=== PATIENT | female | born 1960 | race Caucasian/White ===

== ENCOUNTER 2018-03-11 17:26 | Inpatient (IN) ==
[2018-03-11] MEDS ORDERED: DEXTROSE 50% 25 GM/50 ML VIAL IV PRN (20:20)
[2018-03-11] MEDS ORDERED: GLUCAGON 1 MG VIAL IM PRN (20:20)
[2018-03-11] MEDS ORDERED: ZALEPLON 5 MG CAPSULE PO PRN (20:20)
[2018-03-11] MEDS: SODIUM CHLORIDE 0.9% 1,000 ML IV SCH (20:52)
[2018-03-11] MEDS: PIPERACILLIN/TAZOBACTAM 3,375 MG in SODIUM CHLORIDE 0.9% 100 ML IV SCH (21:07)
[2018-03-11 22:11] LABS: Calcium 8.4 MG/DL (8.5-10.1); Osmolality,Calculated 276.8 MOS/KG (273-304); Potassium 3.2 MMOL/L (3.5-5.1)
[2018-03-12] MEDS: VANCOMYCIN INJ 1,250 MG in SODIUM CHLORIDE 0.9% 250 ML IV SCH ×2 (01:14→17:46)
[2018-03-12] MEDS: INSULIN REGULAR 100 UNIT/ML SUBCUT SCH ×5 (01:20→21:08)
[2018-03-12] MEDS: POTASSIUM CHLORIDE RIDER 10 MEQ in PREMIX 1 EACH IV PRN ×3 (04:04→07:03)
[2018-03-12] MEDS: PIPERACILLIN/TAZOBACTAM 3,375 MG in SODIUM CHLORIDE 0.9% 100 ML IV SCH ×3 (05:34→21:08)
[2018-03-12 07:14] LABS: Basophils # 0.1 10*3/uL (0.0-0.2); Basophils % 0.4 % (0.0-0.8); Eosinophils # 0.1 10*3/uL (0.0-0.87); Eosinophils % 0.6 % (0.00-10.9); Hematocrit 32.5 VOL% (35.7-47.0); Hemoglobin 10.9 GM/DL (12.0-16.0); Immature Granulocytes % 1.1 %; Immature Granulocytes Absolute 0.15 #; Lymphocytes # 1.1 10*3/uL (1.4-4.0); Mean Corpuscular HGB Conc 33.5 GM/DL (32-36); Mean Corpuscular Hemoglobin 30 PG (27-34); Mean Corpuscular Volume 90.3 FL (87-102); Monocytes # 1.1 10*3/uL (0.11-0.8); Monocytes % 8.2 % (1.7-12.7); Neutrophils # 11.2 10*3/uL (1.4-7.4); Neutrophils % 81.7 % (38.7-73.9); Platelet Count 227 T/CUMM (130-400); Red Cell Distribution Width 12.7 % (9.3-17.3); White Blood Count 13.7 T/CUMM (4-12)
[2018-03-12 07:47] LABS: Calcium 8.3 MG/DL (8.5-10.1); Potassium 4.2 MMOL/L (3.5-5.1)
[2018-03-12 07:52] LABS: Anisocytosis Slight; Band Neutrophils 41 % (0-10); Eosinophils 2 % (0-10); Lymphocytes 10 % (20-55); Platelet Estimate Normal; Segmented Neutrophils 38 % (50-85); Total Cells Counted 100
[2018-03-12] MEDS: LISINOPRIL 10 MG TABLET PO SCH (10:05)
[2018-03-12] MEDS: LEVOTHYROXINE 88 MCG TABLET PO SCH (10:05)
[2018-03-12] MEDS: rOPINIRole 1 MG TABLET PO SCH (10:06)
[2018-03-12] MEDS: ESCITALOPRAM 10 MG TABLET PO SCH (10:06)
[2018-03-12] MEDS ORDERED: INSULIN GLARGINE 100 UNIT/ML SUBCUT SCH (21:00)
[2018-03-12] MEDS: PRAVASTATIN 40 MG TABLET PO SCH (21:09)
[2018-03-13] MEDS: VANCOMYCIN INJ 1,250 MG in SODIUM CHLORIDE 0.9% 250 ML IV SCH ×2 (01:56→13:39)
[2018-03-13] MEDS: PIPERACILLIN/TAZOBACTAM 3,375 MG in SODIUM CHLORIDE 0.9% 100 ML IV SCH ×3 (04:53→21:59)
[2018-03-13 07:00] LABS: Basophils # 0.1 10*3/uL (0.0-0.2); Basophils % 0.4 % (0.0-0.8); Eosinophils # 0.1 10*3/uL (0.0-0.87); Eosinophils % 0.9 % (0.00-10.9); Hematocrit 31.9 VOL% (35.7-47.0); Hemoglobin 10.8 GM/DL (12.0-16.0); Immature Granulocytes % 1.9 %; Immature Granulocytes Absolute 0.26 #; Lymphocytes # 2.1 10*3/uL (1.4-4.0); Lymphocytes % 14.9 % (21.3-54.2); Mean Corpuscular HGB Conc 33.9 GM/DL (32-36); Mean Corpuscular Hemoglobin 30 PG (27-34); Mean Corpuscular Volume 88.9 FL (87-102); Mean Platelet Volume 10.6 FL (9.6-12.0); Monocytes # 1.3 10*3/uL (0.11-0.8); Monocytes % 9.6 % (1.7-12.7); Neutrophils % 72.3 % (38.7-73.9); Platelet Count 253 T/CUMM (130-400); Red Blood Count 3.59 MC/CUMM (3.8-5.5); Red Cell Distribution Width 12.9 % (9.3-17.3); White Blood Count 13.9 T/CUMM (4-12)
[2018-03-13] MEDS: SODIUM CHLORIDE 0.9% 1,000 ML IV SCH ×2 (07:00→10:11)
[2018-03-13] MEDS: LEVOTHYROXINE 88 MCG TABLET PO SCH (07:11)
[2018-03-13 07:17] LABS: Calcium 8.5 MG/DL (8.5-10.1); Osmolality,Calculated 285.8 MOS/KG (273-304)
[2018-03-13] MEDS: INSULIN REGULAR 100 UNIT/ML SUBCUT SCH ×4 (08:28→21:53)
[2018-03-13] MEDS: ENOXAPARIN 40 MG/0.4 ML SYRINGE SUBCUT SCH (09:14)
[2018-03-13] MEDS: rOPINIRole 1 MG TABLET PO SCH (09:15)
[2018-03-13] MEDS: ESCITALOPRAM 10 MG TABLET PO SCH (09:16)
[2018-03-13] MEDS: LISINOPRIL 10 MG TABLET PO SCH (09:21)
[2018-03-13] MEDS ORDERED: SODIUM PHOSPHATE ENEMA 133 ML BOTTLE RECTAL ONE (09:34)
[2018-03-13] MEDS: MORPHINE 4 MG/1 ML VIAL IV PRN ×2 (11:36→21:52)
[2018-03-13] MEDS: INSULIN GLARGINE 100 UNIT/ML SUBCUT SCH (21:53)
[2018-03-13] MEDS: PRAVASTATIN 40 MG TABLET PO SCH (21:54)
[2018-03-14] MEDS: VANCOMYCIN INJ 1,250 MG in SODIUM CHLORIDE 0.9% 250 ML IV SCH (02:31)
[2018-03-14] MEDS: LEVOTHYROXINE 88 MCG TABLET PO SCH ×2 (06:01→07:00)
[2018-03-14] MEDS: PIPERACILLIN/TAZOBACTAM 3,375 MG in SODIUM CHLORIDE 0.9% 100 ML IV SCH ×2 (06:02→18:09)
[2018-03-14 07:13] LABS: Basophils # 0.1 10*3/uL (0.0-0.2); Basophils % 0.6 % (0.0-0.8); Eosinophils # 0.1 10*3/uL (0.0-0.87); Eosinophils % 1.1 % (0.00-10.9); Hematocrit 31.7 VOL% (35.7-47.0); Hemoglobin 10.6 GM/DL (12.0-16.0); Immature Granulocytes % 5.2 %; Immature Granulocytes Absolute 0.69 #; Lymphocytes # 1.5 10*3/uL (1.4-4.0); Lymphocytes % 11.3 % (21.3-54.2); Mean Corpuscular HGB Conc 33.4 GM/DL (32-36); Mean Corpuscular Hemoglobin 30 PG (27-34); Mean Corpuscular Volume 89.5 FL (87-102); Mean Platelet Volume 10.5 FL (9.6-12.0); Monocytes # 1.7 10*3/uL (0.11-0.8); Monocytes % 13.1 % (1.7-12.7); NRBC # 0.06 10*3/uL; Neutrophils % 68.7 % (38.7-73.9); Platelet Count 275 T/CUMM (130-400); Red Blood Count 3.54 MC/CUMM (3.8-5.5); Red Cell Distribution Width 13.1 % (9.3-17.3); White Blood Count 13.2 T/CUMM (4-12)
[2018-03-14 07:32] LABS: Band Neutrophils 2 % (0-10); Eosinophils 4 % (0-10); Hypochromasia 1+; Lymphocytes 15 % (20-55); Platelet Estimate Adequate; Segmented Neutrophils 71 % (50-85); Total Cells Counted 100
[2018-03-14 07:43] LABS: Calcium 8.4 MG/DL (8.5-10.1); Osmolality,Calculated 286.1 MOS/KG (273-304); Potassium 3.8 MMOL/L (3.5-5.1)
[2018-03-14] MEDS: ENOXAPARIN 40 MG/0.4 ML SYRINGE SUBCUT SCH (09:19)
[2018-03-14] MEDS ORDERED: LIDOCAINE 1% 20 ML VIAL ONE (10:36)
[2018-03-14] MEDS: INSULIN REGULAR 100 UNIT/ML SUBCUT SCH ×4 (12:22→21:09)
[2018-03-14] MEDS ORDERED: MIDAZOLAM 2 MG/2 ML VIAL ONE (12:23)
[2018-03-14] MEDS ORDERED: PROPOFOL 200 MG/20 ML VIAL IV ONE (12:23)
[2018-03-14] MEDS ORDERED: fentaNYL 100 MCG/2 ML VIAL ONE (12:24)
[2018-03-14] MEDS ORDERED: INSULIN REGULAR 100 UNIT/ML ONE (12:25)
[2018-03-14] MEDS ORDERED: ONDANSETRON 4 MG/2 ML VIAL ONE (12:28)
[2018-03-14] MEDS ORDERED: MEPERIDINE 25 MG/1 ML VIAL ONE (12:28)
[2018-03-14] MEDS: MEPERIDINE 25 MG/1 ML VIAL IV PRN (12:30)
[2018-03-14] MEDS ORDERED: ONDANSETRON 4 MG/2 ML VIAL IV PRN (12:30)
[2018-03-14] MEDS: INSULIN GLARGINE 100 UNIT/ML SUBCUT SCH ×2 (13:41→21:10)
[2018-03-14] MEDS: ALUMINUM/MAGNES/SIMETH MAX STR 30 ML UDCUP PO PRN (18:08)
[2018-03-14] MEDS: LISINOPRIL 10 MG TABLET PO SCH (18:46)
[2018-03-14] MEDS: rOPINIRole 1 MG TABLET PO SCH (18:46)
[2018-03-14] MEDS: ESCITALOPRAM 10 MG TABLET PO SCH (18:46)
[2018-03-14] MEDS: PRAVASTATIN 40 MG TABLET PO SCH (21:09)
[2018-03-15] MEDS: PIPERACILLIN/TAZOBACTAM 3,375 MG in SODIUM CHLORIDE 0.9% 100 ML IV SCH (01:39)
[2018-03-15] MEDS: SODIUM CHLORIDE 0.9% 1,000 ML IV SCH ×2 (01:41→01:42)
[2018-03-15] MEDS: LEVOTHYROXINE 88 MCG TABLET PO SCH (06:17)
[2018-03-15 07:01] LABS: Basophils # 0.1 10*3/uL (0.0-0.2); Basophils % 0.4 % (0.0-0.8); Eosinophils # 0.2 10*3/uL (0.0-0.87); Hematocrit 30.2 VOL% (35.7-47.0); Hemoglobin 9.7 GM/DL (12.0-16.0); Immature Granulocytes Absolute 0.91 #; Lymphocytes # 2.5 10*3/uL (1.4-4.0); Lymphocytes % 13.5 % (21.3-54.2); Mean Corpuscular HGB Conc 32.1 GM/DL (32-36); Mean Corpuscular Hemoglobin 30 PG (27-34); Mean Corpuscular Volume 92.4 FL (87-102); Mean Platelet Volume 10.2 FL (9.6-12.0); Monocytes % 11.1 % (1.7-12.7); Neutrophils # 12.7 10*3/uL (1.4-7.4); Platelet Count 302 T/CUMM (130-400); Red Blood Count 3.27 MC/CUMM (3.8-5.5); Red Cell Distribution Width 13.2 % (9.3-17.3); White Blood Count 18.4 T/CUMM (4-12)
[2018-03-15 07:18] LABS: Calcium 8.2 MG/DL (8.5-10.1); Osmolality,Calculated 278.4 MOS/KG (273-304); Potassium 3.6 MMOL/L (3.5-5.1)
[2018-03-15 07:24] LABS: Band Neutrophils 6 % (0-10); Lymphocytes 15 % (20-55); Platelet Estimate Adequate; Segmented Neutrophils 70 % (50-85); Total Cells Counted 100
[2018-03-15 07:25] LABS: Hypochromasia Slight
[2018-03-15] MEDS: INSULIN REGULAR 100 UNIT/ML SUBCUT SCH ×4 (07:30→20:18)
[2018-03-15] MEDS: INSULIN GLARGINE 100 UNIT/ML SUBCUT SCH ×2 (09:00→20:18)
[2018-03-15] MEDS ORDERED: LIDOCAINE 1% 20 ML VIAL ONE (10:36)
[2018-03-15] MEDS ORDERED: PROPOFOL 200 MG/20 ML VIAL IV ONE (12:05)
[2018-03-15] MEDS ORDERED: MIDAZOLAM 2 MG/2 ML VIAL ONE (12:06)
[2018-03-15] MEDS ORDERED: fentaNYL 100 MCG/2 ML VIAL ONE (12:06)
[2018-03-15] MEDS ORDERED: PHENYLEPHRINE 1 MG/10 ML SYRINGE IV ONE (12:06)
[2018-03-15] MEDS ORDERED: LACTATED RINGERS 1,000 ML IV ONE (12:07)
[2018-03-15] MEDS ORDERED: PIPERACILLIN/TAZOBACTAM 3,375 MG in SODIUM CHLORIDE 0.9% 100 ML IV SCH (14:00)
[2018-03-15] MEDS ORDERED: cefTRIAXone 1,000 MG in SODIUM CHLORIDE 0.9% 100 ML IV SCH (15:30)
[2018-03-15] MEDS: ONDANSETRON 4 MG/2 ML VIAL IV PRN (15:36)
[2018-03-15] MEDS: MORPHINE 4 MG/1 ML VIAL IV PRN ×2 (15:37→20:16)
[2018-03-15] MEDS ORDERED: cefTRIAXone 1,000 MG VIAL IM SCH (16:00)
[2018-03-15] MEDS: ESCITALOPRAM 10 MG TABLET PO SCH (17:13)
[2018-03-15] MEDS: ENOXAPARIN 40 MG/0.4 ML SYRINGE SUBCUT SCH (17:14)
[2018-03-15] MEDS ORDERED: cefTRIAXone 1,000 MG in SYRINGE 1 EACH IV SCH (17:30)
[2018-03-15] MEDS: rOPINIRole 1 MG TABLET PO SCH (20:17)
[2018-03-15] MEDS: PRAVASTATIN 40 MG TABLET PO SCH (20:18)
[2018-03-15] MEDS ORDERED: PIPERACILLIN/TAZOBACTAM 2,250 MG in SODIUM CHLORIDE 0.9% 100 ML IV SCH (21:00)
[2018-03-16] MEDS: SODIUM CHLORIDE 0.9% 1,000 ML IV SCH ×2 (02:39→08:55)
[2018-03-16] MEDS: LEVOTHYROXINE 88 MCG TABLET PO SCH (06:20)
[2018-03-16 08:40] LABS: Osmolality,Calculated 275.7 MOS/KG (273-304)
[2018-03-16] MEDS ORDERED: FUROSEMIDE 40 MG/4 ML VIAL IV ONE (08:54)
[2018-03-16 09:00] LABS: % Iron Saturation 8.8 % (18-50)
[2018-03-16] MEDS: INSULIN GLARGINE 100 UNIT/ML SUBCUT SCH ×2 (09:02→20:46)
[2018-03-16] MEDS: INSULIN REGULAR 100 UNIT/ML SUBCUT SCH ×4 (09:03→20:47)
[2018-03-16 09:06] LABS: Basophils # 0.1 10*3/uL (0.0-0.2); Basophils % 0.4 % (0.0-0.8); Eosinophils # 0.2 10*3/uL (0.0-0.87); Eosinophils % 0.9 % (0.00-10.9); Hematocrit 29.6 VOL% (35.7-47.0); Hemoglobin 9.6 GM/DL (12.0-16.0); Immature Granulocytes % 5.9 %; Immature Granulocytes Absolute 1.24 #; Lymphocytes # 1.9 10*3/uL (1.4-4.0); Lymphocytes % 9.2 % (21.3-54.2); Mean Corpuscular HGB Conc 32.4 GM/DL (32-36); Mean Corpuscular Hemoglobin 30 PG (27-34); Mean Corpuscular Volume 92.5 FL (87-102); Mean Platelet Volume 9.7 FL (9.6-12.0); Monocytes # 1.7 10*3/uL (0.11-0.8); Monocytes % 8.2 % (1.7-12.7); NRBC # 0.03 10*3/uL; Neutrophils # 15.9 10*3/uL (1.4-7.4); Neutrophils % 75.4 % (38.7-73.9); Platelet Count 321 T/CUMM (130-400); Red Cell Distribution Width 13.2 % (9.3-17.3); White Blood Count 21.1 T/CUMM (4-12)
[2018-03-16 09:27] LABS: Band Neutrophils 2 % (0-10); Lymphocytes 9 % (20-55); Microcytosis 1+; Platelet Estimate Normal; Segmented Neutrophils 79 % (50-85); Total Cells Counted 100
[2018-03-16 09:47] LABS: Amorphous Crystals,Urine Occasional /HPF (Few); Apearance,Urine Slightly Hazy (Clear); Bacteria,Urine Occasional /HPF (Few); Bilirubin,Urine Negative (Negative); Blood, Urine Small mg/dL (Negative); Glucose,Urine (UA) 50 mg/dL (Negative); Ketones,Urine Negative (Negative); Nitrite,Urine Negative (Negative); Protein,Urine Negative; RBC,Urine <1 /HPF (0-4); Squamous Epithelial Cell,Urine Occasional /HPF (0-10); Urine Color Straw (Yellow); Urine Specific Gravity 1.003 (1.001-1.035); Urine Urobilinogen < 2.0 EU/DL (0.2-1.0); WBC,Urine 1 /HPF (0-6)
[2018-03-16 10:05] LABS: Creatinine,Urine Random 26 MG/DL; Total Protein,Urine Random 31 MG/DL; Urea Nitrogen, Urine Random 88 MG/DL
[2018-03-16] MEDS ORDERED: PIPERACILLIN/TAZOBACTAM 2,250 MG in SODIUM CHLORIDE 0.9% 100 ML IV SCH (10:30)
[2018-03-16] MEDS ORDERED: SEVOFLURANE 1 UNIT/15 MINUTE INH ONE (11:25)
[2018-03-16] MEDS ORDERED: PROPOFOL 200 MG/20 ML VIAL IV ONE (11:25)
[2018-03-16] MEDS ORDERED: ONDANSETRON 4 MG/2 ML VIAL ONE (11:26)
[2018-03-16] MEDS ORDERED: fentaNYL 100 MCG/2 ML VIAL ONE (11:26)
[2018-03-16] MEDS ORDERED: ACETAMINOPHEN 1,000 MG/100 ML VIAL IV ONE (11:26)
[2018-03-16] MEDS ORDERED: MIDAZOLAM 2 MG/2 ML VIAL ONE (11:26)
[2018-03-16] MEDS ORDERED: KETOROLAC 30 MG/1 ML VIAL ONE (11:26)
[2018-03-16] MEDS: SODIUM BICARB INJ 100 MEQ in DEXTROSE 5% 1,000 ML IV SCH (12:05)
[2018-03-16] MEDS: PIPERACILLIN/TAZOBACTAM 3,375 MG in SODIUM CHLORIDE 0.9% 100 ML IV SCH ×2 (12:26→23:00)
[2018-03-16] MEDS: amLODIPine 5 MG TABLET PO SCH (13:00)
[2018-03-16] MEDS: ENOXAPARIN 30 MG/0.3 ML SYRINGE SUBCUT SCH (13:01)
[2018-03-16] MEDS: ESCITALOPRAM 10 MG TABLET PO SCH (13:01)
[2018-03-16 15:07] LABS: Lactic Acid 1.2 MMOL/L (0.4-2.0)
[2018-03-16 15:10] LABS: Alanine Aminotransferase 13 U/L (13-56); Albumin 1.5 G/DL (3.4-5.0); Alkaline Phosphatase 129 U/L (45-117); Aspartate Amino Transferase 12 U/L (0-37); Bilirubin,Indirect 0.3 MG/DL (0.0-1.0); Bilirubin,Total < 0.39 MG/DL (0.2-1.0); Total Protein 6.3 G/DL (6.4-8.3)
[2018-03-16] MEDS: MEPERIDINE 25 MG/1 ML VIAL IV PRN (15:33)
[2018-03-16] MEDS: ONDANSETRON 4 MG/2 ML VIAL IV PRN (20:45)
[2018-03-16] MEDS: rOPINIRole 1 MG TABLET PO SCH (20:46)
[2018-03-17] MEDS: ALUMINUM/MAGNES/SIMETH MAX STR 30 ML UDCUP PO PRN ×3 (00:03→21:52)
[2018-03-17] MEDS: ONDANSETRON 4 MG/2 ML VIAL IV PRN ×3 (01:08→12:15)
[2018-03-17] MEDS: LEVOTHYROXINE 88 MCG TABLET PO SCH (06:12)
[2018-03-17 07:14] LABS: Basophils # 0.1 10*3/uL (0.0-0.2); Basophils % 0.3 % (0.0-0.8); Eosinophils # 0.1 10*3/uL (0.0-0.87); Eosinophils % 0.8 % (0.00-10.9); Hematocrit 29.8 VOL% (35.7-47.0); Hemoglobin 9.9 GM/DL (12.0-16.0); Immature Granulocytes % 4.5 %; Immature Granulocytes Absolute 0.83 #; Lymphocytes # 1.4 10*3/uL (1.4-4.0); Lymphocytes % 7.5 % (21.3-54.2); Mean Corpuscular HGB Conc 33.2 GM/DL (32-36); Mean Corpuscular Hemoglobin 30 PG (27-34); Mean Corpuscular Volume 89.2 FL (87-102); Mean Platelet Volume 9.8 FL (9.6-12.0); Monocytes # 1.2 10*3/uL (0.11-0.8); Monocytes % 6.2 % (1.7-12.7); NRBC # 0.02 10*3/uL; Neutrophils % 80.7 % (38.7-73.9); Platelet Count 341 T/CUMM (130-400); Red Blood Count 3.34 MC/CUMM (3.8-5.5); Red Cell Distribution Width 13.2 % (9.3-17.3); White Blood Count 18.5 T/CUMM (4-12)
[2018-03-17 07:33] LABS: Albumin 1.4 G/DL (3.4-5.0); Calcium 7.7 MG/DL (8.5-10.1); Osmolality,Calculated 284.1 MOS/KG (273-304)
[2018-03-17 07:51] LABS: Band Neutrophils 36 % (0-10); Lymphocytes 6 % (20-55); Nucleated Red Blood Cells 1 (0-5); Platelet Estimate Normal; Segmented Neutrophils 53 % (50-85); Total Cells Counted 100
[2018-03-17 07:52] LABS: Anisocytosis Slight
[2018-03-17] MEDS: SODIUM BICARB INJ 100 MEQ in DEXTROSE 5% 1,000 ML IV SCH (09:37)
[2018-03-17] MEDS: ESCITALOPRAM 10 MG TABLET PO SCH (09:37)
[2018-03-17] MEDS: ENOXAPARIN 30 MG/0.3 ML SYRINGE SUBCUT SCH (09:37)
[2018-03-17] MEDS: INSULIN REGULAR 100 UNIT/ML SUBCUT SCH ×4 (09:37→21:46)
[2018-03-17] MEDS: amLODIPine 5 MG TABLET PO SCH (09:37)
[2018-03-17] MEDS: INSULIN GLARGINE 100 UNIT/ML SUBCUT SCH ×2 (09:38→21:45)
[2018-03-17] MEDS: methylPREDNISolone SOD SUC 125 MG/2 ML VIAL IV SCH ×2 (10:38→21:45)
[2018-03-17] MEDS: ALBUMIN 25% 25 GM in PREMIX 1 EACH IV SCH ×2 (10:38→17:10)
[2018-03-17 11:34] LABS: Hepatitis A Ab IgM Quant 0.26 Index; Hepatitis A Ab IgM Result Negative (Negative); Hepatitis B Core IgM Quant < 0.05 Index; Hepatitis B Core IgM Result Negative (Negative); Hepatitis B Surface Ag Quant < 0.10 Index; Hepatitis B Surface Ag Result Negative (Negative); Hepatitis C Virus Ab Quant 0.16 Index; Hepatitis C Virus Ab Result Negative (Negative)
[2018-03-17] MEDS: miSOPROStol 200 MCG TABLET PO SCH ×3 (12:10→21:44)
[2018-03-17] MEDS: PIPERACILLIN/TAZOBACTAM 3,375 MG in SODIUM CHLORIDE 0.9% 100 ML IV SCH (12:10)
[2018-03-17] MEDS: AMPICILLIN/SULBACTAM 3,000 MG in SODIUM CHLORIDE 0.9% 100 ML IV SCH (18:47)
[2018-03-17] MEDS: rOPINIRole 1 MG TABLET PO SCH (21:45)
[2018-03-18] MEDS: ALBUMIN 25% 25 GM in PREMIX 1 EACH IV SCH ×3 (01:34→23:38)
[2018-03-18] MEDS: ONDANSETRON 4 MG/2 ML VIAL IV PRN ×2 (02:07→21:29)
[2018-03-18] MEDS: MORPHINE 4 MG/1 ML VIAL IV PRN (02:07)
[2018-03-18] MEDS ORDERED: DIAZEPAM 5 MG TABLET PO ONE (05:00)
[2018-03-18] MEDS ORDERED: FAMOTIDINE 20 MG TABLET PO ONE (05:00)
[2018-03-18] MEDS: LEVOTHYROXINE 88 MCG TABLET PO SCH (07:01)
[2018-03-18] MEDS: SODIUM BICARB INJ 100 MEQ in DEXTROSE 5% 1,000 ML IV SCH ×2 (07:01→18:13)
[2018-03-18] MEDS: miSOPROStol 200 MCG TABLET PO SCH ×4 (08:01→21:17)
[2018-03-18 08:08] LABS: Albumin 2.5 G/DL (3.4-5.0); Calcium 7.5 MG/DL (8.5-10.1); Osmolality,Calculated 279.7 MOS/KG (273-304); Potassium 4.6 MMOL/L (3.5-5.1)
[2018-03-18] MEDS: INSULIN REGULAR 100 UNIT/ML SUBCUT SCH ×4 (09:15→21:18)
[2018-03-18] MEDS: amLODIPine 5 MG TABLET PO SCH (09:17)
[2018-03-18] MEDS: ESCITALOPRAM 10 MG TABLET PO SCH (09:17)
[2018-03-18] MEDS ORDERED: LIDOCAINE 1% 5 ML VIAL ONE (10:42)
[2018-03-18] MEDS: methylPREDNISolone SOD SUC 125 MG/2 ML VIAL IV SCH ×2 (10:46→23:38)
[2018-03-18] MEDS: INSULIN GLARGINE 100 UNIT/ML SUBCUT SCH ×2 (10:56→21:18)
[2018-03-18] MEDS ORDERED: PROPOFOL 200 MG/20 ML VIAL IV ONE (13:02)
[2018-03-18] MEDS ORDERED: SEVOFLURANE 1 UNIT/15 MINUTE INH ONE (13:02)
[2018-03-18] MEDS ORDERED: MIDAZOLAM 2 MG/2 ML VIAL ONE (13:02)
[2018-03-18] MEDS ORDERED: fentaNYL 100 MCG/2 ML VIAL ONE (13:02)
[2018-03-18] MEDS ORDERED: ONDANSETRON 4 MG/2 ML VIAL ONE (13:02)
[2018-03-18 15:31] LABS: Myeloperoxidase Antibody < 0.2 U
[2018-03-18] MEDS: ENOXAPARIN 30 MG/0.3 ML SYRINGE SUBCUT SCH (16:38)
[2018-03-18] MEDS: AMPICILLIN/SULBACTAM 3,000 MG in SODIUM CHLORIDE 0.9% 100 ML IV SCH (16:39)
[2018-03-18] MEDS: hydrALAZINE 25 MG TABLET PO SCH ×2 (17:41→21:17)
[2018-03-18] MEDS: rOPINIRole 1 MG TABLET PO SCH (21:17)
[2018-03-18] MEDS: ALUMINUM/MAGNES/SIMETH MAX STR 30 ML UDCUP PO PRN (21:28)
[2018-03-19] MEDS: ONDANSETRON 4 MG/2 ML VIAL IV PRN ×2 (02:24→22:35)
[2018-03-19] MEDS: ALBUMIN 25% 25 GM in PREMIX 1 EACH IV SCH ×2 (05:45→14:15)
[2018-03-19] MEDS: LEVOTHYROXINE 88 MCG TABLET PO SCH (06:02)
[2018-03-19 06:08] LABS: Calcium 7.6 MG/DL (8.5-10.1); Osmolality,Calculated 285.5 MOS/KG (273-304); Potassium 4.4 MMOL/L (3.5-5.1)
[2018-03-19] MEDS: INSULIN REGULAR 100 UNIT/ML SUBCUT SCH ×4 (09:07→22:42)
[2018-03-19] MEDS: INSULIN GLARGINE 100 UNIT/ML SUBCUT SCH ×2 (09:08→22:36)
[2018-03-19] MEDS: ENOXAPARIN 30 MG/0.3 ML SYRINGE SUBCUT SCH (09:09)
[2018-03-19] MEDS: miSOPROStol 200 MCG TABLET PO SCH ×4 (09:10→22:33)
[2018-03-19] MEDS: predniSONE 20 MG TABLET PO SCH (09:11)
[2018-03-19] MEDS: ESCITALOPRAM 10 MG TABLET PO SCH (09:11)
[2018-03-19] MEDS: hydrALAZINE 25 MG TABLET PO SCH ×3 (09:12→22:34)
[2018-03-19] MEDS: amLODIPine 10 MG TABLET PO SCH (09:12)
[2018-03-19] MEDS: ALUMINUM/MAGNES/SIMETH MAX STR 30 ML UDCUP PO PRN ×3 (09:15→22:34)
[2018-03-19 09:27] LABS: Basophils % 0.1 % (0.0-0.8); Hematocrit 26.6 VOL% (35.7-47.0); Hemoglobin 8.7 GM/DL (12.0-16.0); Immature Granulocytes % 1.3 %; Lymphocytes # 0.9 10*3/uL (1.4-4.0); Lymphocytes % 5.4 % (21.3-54.2); Mean Corpuscular HGB Conc 32.7 GM/DL (32-36); Mean Corpuscular Hemoglobin 30 PG (27-34); Mean Corpuscular Volume 91.4 FL (87-102); Mean Platelet Volume 9.4 FL (9.6-12.0); Monocytes # 0.5 10*3/uL (0.11-0.8); Monocytes % 2.9 % (1.7-12.7); Neutrophils # 14.4 10*3/uL (1.4-7.4); Neutrophils % 90.3 % (38.7-73.9); Platelet Count 338 T/CUMM (130-400); Red Blood Count 2.91 MC/CUMM (3.8-5.5); Red Cell Distribution Width 13.2 % (9.3-17.3)
[2018-03-19] MEDS: AMPICILLIN/SULBACTAM 3,000 MG in SODIUM CHLORIDE 0.9% 100 ML IV SCH (16:21)
[2018-03-19] MEDS: SODIUM BICARB INJ 100 MEQ in DEXTROSE 5% 1,000 ML IV SCH (18:32)
[2018-03-19 21:25] LABS: Basophils % 0.1 % (0.0-0.8); Hemoglobin 8.7 GM/DL (12.0-16.0); Immature Granulocytes % 1.7 %; Immature Granulocytes Absolute 0.34 #; Lymphocytes # 0.8 10*3/uL (1.4-4.0); Lymphocytes % 4.1 % (21.3-54.2); Mean Corpuscular HGB Conc 33.5 GM/DL (32-36); Mean Corpuscular Hemoglobin 30 PG (27-34); Mean Corpuscular Volume 89.3 FL (87-102); Mean Platelet Volume 9.3 FL (9.6-12.0); Monocytes # 0.8 10*3/uL (0.11-0.8); Monocytes % 3.9 % (1.7-12.7); Neutrophils # 17.8 10*3/uL (1.4-7.4); Neutrophils % 90.2 % (38.7-73.9); Platelet Count 360 T/CUMM (130-400); Red Blood Count 2.91 MC/CUMM (3.8-5.5); White Blood Count 19.8 T/CUMM (4-12)
[2018-03-19 21:47] LABS: Blood Urea Nitrogen 57 MG/DL (7-18); Calcium 7.5 MG/DL (8.5-10.1); Glucose 210 MG/DL (74-106); Osmolality,Calculated 283.7 MOS/KG (273-304); Potassium 3.8 MMOL/L (3.5-5.1); Sodium 131 MMOL/L (136-145)
[2018-03-19 21:50] LABS: Band Neutrophils 2 % (0-10); Lymphocytes 4 % (20-55); Platelet Estimate Normal; Segmented Neutrophils 90 % (50-85); Total Cells Counted 100
[2018-03-19] MEDS: rOPINIRole 1 MG TABLET PO SCH (22:33)
[2018-03-19] MEDS: PRAVASTATIN 40 MG TABLET PO SCH (22:34)
[2018-03-19] MEDS: PANTOPRAZOLE 40 MG TABLET PO SCH (22:34)
[2018-03-20] MEDS: ALBUMIN 25% 25 GM in PREMIX 1 EACH IV SCH ×2 (00:23→06:54)
[2018-03-20 05:57] LABS: Basophils % 0.1 % (0.0-0.8); Hematocrit 22.6 VOL% (35.7-47.0); Hemoglobin 7.7 GM/DL (12.0-16.0); Immature Granulocytes % 1.7 %; Immature Granulocytes Absolute 0.27 #; Lymphocytes % 5.9 % (21.3-54.2); Mean Corpuscular HGB Conc 34.1 GM/DL (32-36); Mean Corpuscular Hemoglobin 30 PG (27-34); Mean Corpuscular Volume 87.3 FL (87-102); Mean Platelet Volume 9.5 FL (9.6-12.0); Monocytes # 0.8 10*3/uL (0.11-0.8); Monocytes % 4.7 % (1.7-12.7); Neutrophils # 14.2 10*3/uL (1.4-7.4); Neutrophils % 87.6 % (38.7-73.9); Platelet Count 324 T/CUMM (130-400); Red Blood Count 2.59 MC/CUMM (3.8-5.5); Red Cell Distribution Width 13.2 % (9.3-17.3); White Blood Count 16.2 T/CUMM (4-12)
[2018-03-20 06:32] LABS: Albumin 3.4 G/DL (3.4-5.0); Calcium 7.3 MG/DL (8.5-10.1); Osmolality,Calculated 280.7 MOS/KG (273-304)
[2018-03-20] MEDS: LEVOTHYROXINE 88 MCG TABLET PO SCH (06:55)
[2018-03-20] MEDS: ALBUTEROL/IPRATROPIUM 3 ML NEB RESP TX SCH ×4 (07:50→19:29)
[2018-03-20 07:53] LABS: Hematocrit 27.4 VOL% (35.7-47.0); Hemoglobin 9.2 GM/DL (12.0-16.0)
[2018-03-20] MEDS: hydrALAZINE 25 MG TABLET PO SCH ×4 (08:35→20:32)
[2018-03-20] MEDS: PANTOPRAZOLE 40 MG TABLET PO SCH (08:35)
[2018-03-20] MEDS: miSOPROStol 200 MCG TABLET PO SCH ×4 (08:35→20:31)
[2018-03-20] MEDS: predniSONE 20 MG TABLET PO SCH (08:35)
[2018-03-20] MEDS: ESCITALOPRAM 10 MG TABLET PO SCH (08:36)
[2018-03-20] MEDS: amLODIPine 10 MG TABLET PO SCH (08:36)
[2018-03-20] MEDS: INSULIN REGULAR 100 UNIT/ML SUBCUT SCH ×4 (08:38→20:30)
[2018-03-20] MEDS ORDERED: METOPROLOL TARTRATE 5 MG/5 ML VIAL IV ONE ×2 (10:02→10:03)
[2018-03-20 10:17] LABS: ABG Base Excess -3.2 MMOL/L (-2.5-2.5); ABG HCO3 21.5 MMOL/L (20-26); ABG Oxygen Saturation 83.3 % (95-100); ABG PCO2 33.6 MM HG (35-48); ABG PH 7.403 (7.35-7.45); ABG PO2 49.7 MM HG (80-95); ABG TCO2 19.6 MMOL/L (23-27); Allen Test Positive
[2018-03-20] MEDS: INSULIN GLARGINE 100 UNIT/ML SUBCUT SCH ×2 (10:25→20:30)
[2018-03-20] MEDS: ENOXAPARIN 30 MG/0.3 ML SYRINGE SUBCUT SCH (10:26)
[2018-03-20] MEDS: ASPIRIN EC 81 MG TABLET PO SCH (12:32)
[2018-03-20] MEDS: ONDANSETRON 4 MG/2 ML VIAL IV PRN (14:15)
[2018-03-20] MEDS ORDERED: FUROSEMIDE 100 MG/10 ML VIAL IV ONE (14:23)
[2018-03-20 15:02] LABS: Apearance,Urine Slightly Hazy (Clear); Bacteria,Urine Occasional /HPF (Few); Bilirubin,Urine Negative (Negative); Blood, Urine Moderate mg/dL (Negative); Glucose,Urine (UA) 150 mg/dL (Negative); Ketones,Urine Negative (Negative); Mucus,Urine Occasional /LPF (Occasional); Nitrite,Urine Negative (Negative); Protein,Urine 30 MG/DL; RBC,Urine 16 /HPF (0-4); Squamous Epithelial Cell,Urine Occasional /HPF (0-10); Urine Color Yellow (Yellow); Urine Specific Gravity 1.009 (1.001-1.035); Urine Urobilinogen < 2.0 EU/DL (0.2-1.0); WBC,Urine 6 /HPF (0-6)
[2018-03-20] MEDS: AMPICILLIN/SULBACTAM 3,000 MG in SODIUM CHLORIDE 0.9% 100 ML IV SCH (16:59)
[2018-03-20 19:00] LABS: Calcium 7.7 MG/DL (8.5-10.1); Osmolality,Calculated 283.9 MOS/KG (273-304)
[2018-03-20] MEDS: ALUMINUM/MAGNES/SIMETH MAX STR 30 ML UDCUP PO PRN (20:30)
[2018-03-20] MEDS: rOPINIRole 1 MG TABLET PO SCH (20:31)
[2018-03-20] MEDS: PRAVASTATIN 40 MG TABLET PO SCH (20:32)
[2018-03-21 03:36] LABS: ABG HCO3 24.5 MMOL/L (20-26); ABG Oxygen Saturation 99.8 % (95-100); ABG PCO2 33.3 MM HG (35-48); ABG PH 7.457 (7.35-7.45)
[2018-03-21 03:54] LABS: Basophils % 0.1 % (0.0-0.8); Hematocrit 22.7 VOL% (35.7-47.0); Hemoglobin 7.5 GM/DL (12.0-16.0); Immature Granulocytes % 1.8 %; Immature Granulocytes Absolute 0.31 #; Lymphocytes % 6.1 % (21.3-54.2); Mean Corpuscular Hemoglobin 29 PG (27-34); Mean Corpuscular Volume 88.3 FL (87-102); Mean Platelet Volume 9.6 FL (9.6-12.0); Neutrophils # 14.5 10*3/uL (1.4-7.4); Platelet Count 313 T/CUMM (130-400); Red Blood Count 2.57 MC/CUMM (3.8-5.5); White Blood Count 16.9 T/CUMM (4-12)
[2018-03-21 04:28] LABS: Albumin 3.4 G/DL (3.4-5.0); Calcium 7.5 MG/DL (8.5-10.1); Osmolality,Calculated 285.7 MOS/KG (273-304); Potassium 3.8 MMOL/L (3.5-5.1)
[2018-03-21 04:30] LABS: Calcium 7.6 MG/DL (8.5-10.1); Osmolality,Calculated 288.5 MOS/KG (273-304); Potassium 3.6 MMOL/L (3.5-5.1)
[2018-03-21] MEDS: LEVOTHYROXINE 88 MCG TABLET PO SCH ×2 (06:06→09:01)
[2018-03-21] MEDS: ALBUTEROL/IPRATROPIUM 3 ML NEB RESP TX SCH ×4 (07:12→19:09)
[2018-03-21] MEDS: INSULIN REGULAR 100 UNIT/ML SUBCUT SCH ×4 (08:31→20:23)
[2018-03-21] MEDS: INSULIN GLARGINE 100 UNIT/ML SUBCUT SCH ×2 (08:33→20:23)
[2018-03-21] MEDS: amLODIPine 10 MG TABLET PO SCH (08:33)
[2018-03-21] MEDS ORDERED: predniSONE 20 MG TABLET PO SCH (08:34)
[2018-03-21] MEDS: predniSONE 20 MG TABLET PO SCH (08:34)
[2018-03-21] MEDS: ESCITALOPRAM 10 MG TABLET PO SCH (08:34)
[2018-03-21] MEDS: hydrALAZINE 25 MG TABLET PO SCH ×4 (08:36→20:21)
[2018-03-21] MEDS: PANTOPRAZOLE 40 MG TABLET PO SCH (08:36)
[2018-03-21] MEDS: miSOPROStol 200 MCG TABLET PO SCH ×4 (08:36→20:22)
[2018-03-21] MEDS: ASPIRIN EC 81 MG TABLET PO SCH (08:36)
[2018-03-21] MEDS: ENOXAPARIN 30 MG/0.3 ML SYRINGE SUBCUT SCH (08:37)
[2018-03-21] MEDS: FUROSEMIDE 40 MG/4 ML VIAL IV SCH ×2 (09:52→17:42)
[2018-03-21] MEDS ORDERED: SODIUM HYPOCHLORITE 0.25% IRRIG 473 ML BOTTLE TOP ONE (10:43)
[2018-03-21] MEDS: SUCRALFATE 1 GM/10 ML UDCUP PO SCH ×2 (11:40→20:22)
[2018-03-21] MEDS ORDERED: SILVER NITRATE STICK 1 EACH TOP PRN (13:32)
[2018-03-21] MEDS ORDERED: HYDROmorphone 2 MG/1 ML VIAL ONE (15:48)
[2018-03-21] MEDS ORDERED: HYDROmorphone 2 MG/1 ML VIAL IV ONE (15:54)
[2018-03-21] MEDS: AMPICILLIN/SULBACTAM 3,000 MG in SODIUM CHLORIDE 0.9% 100 ML IV SCH (19:59)
[2018-03-21] MEDS: rOPINIRole 1 MG TABLET PO SCH (20:22)
[2018-03-22] MEDS: LEVOTHYROXINE 88 MCG TABLET PO SCH (06:30)
[2018-03-22] MEDS: ALBUTEROL/IPRATROPIUM 3 ML NEB RESP TX SCH ×4 (06:45→18:40)
[2018-03-22] MEDS: ACETAMINOPHEN 325 MG TABLET PO PRN (07:16)
[2018-03-22 08:39] LABS: Calcium 7.8 MG/DL (8.5-10.1); Osmolality,Calculated 296.1 MOS/KG (273-304); Potassium 3.1 MMOL/L (3.5-5.1)
[2018-03-22 08:42] LABS: Basophils % 0.1 % (0.0-0.8); Eosinophils # 0.1 10*3/uL (0.0-0.87); Eosinophils % 0.5 % (0.00-10.9); Hematocrit 20.1 VOL% (35.7-47.0); Hemoglobin 6.8 GM/DL (12.0-16.0); Immature Granulocytes % 2.4 %; Immature Granulocytes Absolute 0.42 #; Lymphocytes # 1.3 10*3/uL (1.4-4.0); Lymphocytes % 7.5 % (21.3-54.2); Mean Corpuscular HGB Conc 33.8 GM/DL (32-36); Mean Corpuscular Hemoglobin 30 PG (27-34); Mean Corpuscular Volume 89.3 FL (87-102); Monocytes # 0.8 10*3/uL (0.11-0.8); Monocytes % 4.3 % (1.7-12.7); Neutrophils % 85.2 % (38.7-73.9); Platelet Count 349 T/CUMM (130-400); Red Blood Count 2.25 MC/CUMM (3.8-5.5); Red Cell Distribution Width 13.2 % (9.3-17.3); White Blood Count 17.6 T/CUMM (4-12)
[2018-03-22 08:43] LABS: % Iron Saturation 13.5 % (18-50); Ferritin 498.8 ng/ml (8-252)
[2018-03-22] MEDS: hydrALAZINE 25 MG TABLET PO SCH ×4 (09:09→21:24)
[2018-03-22] MEDS: miSOPROStol 200 MCG TABLET PO SCH ×4 (09:09→21:24)
[2018-03-22] MEDS: ASPIRIN EC 81 MG TABLET PO SCH (09:09)
[2018-03-22] MEDS: amLODIPine 10 MG TABLET PO SCH (09:09)
[2018-03-22] MEDS: ESCITALOPRAM 10 MG TABLET PO SCH (09:10)
[2018-03-22] MEDS: ENOXAPARIN 30 MG/0.3 ML SYRINGE SUBCUT SCH (09:10)
[2018-03-22] MEDS: SUCRALFATE 1 GM/10 ML UDCUP PO SCH ×2 (09:11→21:24)
[2018-03-22] MEDS: INSULIN REGULAR 100 UNIT/ML SUBCUT SCH ×4 (09:11→21:25)
[2018-03-22] MEDS: FUROSEMIDE 40 MG/4 ML VIAL IV SCH (09:23)
[2018-03-22] MEDS ORDERED: SODIUM CHLORIDE 0.9% 1,000 ML IV PRN (09:28)
[2018-03-22] MEDS: PANTOPRAZOLE 40 MG TABLET PO SCH (10:06)
[2018-03-22] MEDS: INSULIN GLARGINE 100 UNIT/ML SUBCUT SCH ×2 (10:06→21:24)
[2018-03-22] MEDS: POTASSIUM CHLORIDE 20 MEQ TABLET PO SCH ×3 (10:06→17:43)
[2018-03-22] MEDS ORDERED: LORazepam 1 MG TABLET PO PRN (11:58)
[2018-03-22] MEDS ORDERED: FUROSEMIDE 100 MG/10 ML VIAL IV ONE (14:44)
[2018-03-22] MEDS: NIFEdipine 10 MG CAPSULE PO PRN (15:27)
[2018-03-22] MEDS: AMPICILLIN/SULBACTAM 3,000 MG in SODIUM CHLORIDE 0.9% 100 ML IV SCH (18:33)
[2018-03-22] MEDS: rOPINIRole 1 MG TABLET PO SCH (21:24)
[2018-03-23] MEDS: LEVOTHYROXINE 88 MCG TABLET PO SCH (06:22)
[2018-03-23 06:25] LABS: Basophils % 0.2 % (0.0-0.8); Eosinophils # 0.3 10*3/uL (0.0-0.87); Eosinophils % 1.9 % (0.00-10.9); Hematocrit 25.5 VOL% (35.7-47.0); Hemoglobin 8.6 GM/DL (12.0-16.0); Immature Granulocytes % 2.5 %; Immature Granulocytes Absolute 0.42 #; Lymphocytes # 1.4 10*3/uL (1.4-4.0); Lymphocytes % 8.7 % (21.3-54.2); Mean Corpuscular HGB Conc 33.7 GM/DL (32-36); Mean Corpuscular Hemoglobin 30 PG (27-34); Mean Corpuscular Volume 90.1 FL (87-102); Monocytes # 0.8 10*3/uL (0.11-0.8); Monocytes % 4.6 % (1.7-12.7); Neutrophils # 13.6 10*3/uL (1.4-7.4); Neutrophils % 82.1 % (38.7-73.9); Platelet Count 341 T/CUMM (130-400); Red Blood Count 2.83 MC/CUMM (3.8-5.5); Red Cell Distribution Width 13.3 % (9.3-17.3); White Blood Count 16.5 T/CUMM (4-12)
[2018-03-23 06:53] LABS: Calcium 7.9 MG/DL (8.5-10.1); Osmolality,Calculated 294.3 MOS/KG (273-304); Potassium 3.3 MMOL/L (3.5-5.1)
[2018-03-23] MEDS: ALBUTEROL/IPRATROPIUM 3 ML NEB RESP TX SCH ×4 (07:02→19:20)
[2018-03-23] MEDS: INSULIN GLARGINE 100 UNIT/ML SUBCUT SCH ×2 (07:12→22:23)
[2018-03-23] MEDS: INSULIN REGULAR 100 UNIT/ML SUBCUT SCH ×4 (07:51→22:22)
[2018-03-23] MEDS: miSOPROStol 200 MCG TABLET PO SCH ×4 (09:14→22:16)
[2018-03-23] MEDS: hydrALAZINE 25 MG TABLET PO SCH ×4 (09:14→22:17)
[2018-03-23] MEDS: ASPIRIN EC 81 MG TABLET PO SCH (09:15)
[2018-03-23] MEDS: SUCRALFATE 1 GM/10 ML UDCUP PO SCH ×2 (09:15→22:17)
[2018-03-23] MEDS: ESCITALOPRAM 10 MG TABLET PO SCH (09:16)
[2018-03-23] MEDS: amLODIPine 10 MG TABLET PO SCH (09:16)
[2018-03-23] MEDS: ENOXAPARIN 30 MG/0.3 ML SYRINGE SUBCUT SCH (09:16)
[2018-03-23] MEDS: predniSONE 20 MG TABLET PO SCH (09:17)
[2018-03-23] MEDS: PANTOPRAZOLE 40 MG TABLET PO SCH (09:17)
[2018-03-23] MEDS: AMPICILLIN/SULBACTAM 3,000 MG in SODIUM CHLORIDE 0.9% 100 ML IV SCH (16:46)
[2018-03-23] MEDS: rOPINIRole 1 MG TABLET PO SCH (22:14)
[2018-03-24] MEDS: LEVOTHYROXINE 88 MCG TABLET PO SCH (06:07)
[2018-03-24 06:16] LABS: Basophils % 0.1 % (0.0-0.8); Eosinophils # 0.1 10*3/uL (0.0-0.87); Eosinophils % 0.9 % (0.00-10.9); Hematocrit 23.4 VOL% (35.7-47.0); Lymphocytes # 1.6 10*3/uL (1.4-4.0); Lymphocytes % 10.7 % (21.3-54.2); Mean Corpuscular HGB Conc 34.2 GM/DL (32-36); Mean Corpuscular Hemoglobin 31 PG (27-34); Mean Corpuscular Volume 89.3 FL (87-102); Mean Platelet Volume 10.3 FL (9.6-12.0); Monocytes # 0.7 10*3/uL (0.11-0.8); Monocytes % 4.6 % (1.7-12.7); Neutrophils # 12.5 10*3/uL (1.4-7.4); Neutrophils % 81.7 % (38.7-73.9); Platelet Count 381 T/CUMM (130-400); Red Blood Count 2.62 MC/CUMM (3.8-5.5); Red Cell Distribution Width 13.5 % (9.3-17.3); White Blood Count 15.3 T/CUMM (4-12)
[2018-03-24 06:32] LABS: Calcium 7.9 MG/DL (8.5-10.1); Osmolality,Calculated 296.7 MOS/KG (273-304); Potassium 3.7 MMOL/L (3.5-5.1)
[2018-03-24] MEDS: ALBUTEROL/IPRATROPIUM 3 ML NEB RESP TX SCH ×4 (07:10→19:16)
[2018-03-24] MEDS: miSOPROStol 200 MCG TABLET PO SCH ×4 (10:05→20:31)
[2018-03-24] MEDS: INSULIN REGULAR 100 UNIT/ML SUBCUT SCH ×4 (10:05→20:33)
[2018-03-24] MEDS: ASPIRIN EC 81 MG TABLET PO SCH (10:06)
[2018-03-24] MEDS: hydrALAZINE 25 MG TABLET PO SCH ×4 (10:06→20:32)
[2018-03-24] MEDS: SUCRALFATE 1 GM/10 ML UDCUP PO SCH ×2 (10:06→20:31)
[2018-03-24] MEDS: predniSONE 20 MG TABLET PO SCH (10:07)
[2018-03-24] MEDS: ENOXAPARIN 30 MG/0.3 ML SYRINGE SUBCUT SCH (10:07)
[2018-03-24] MEDS: ESCITALOPRAM 10 MG TABLET PO SCH (10:07)
[2018-03-24] MEDS: amLODIPine 10 MG TABLET PO SCH (10:07)
[2018-03-24] MEDS: PANTOPRAZOLE 40 MG TABLET PO SCH (10:08)
[2018-03-24] MEDS: INSULIN GLARGINE 100 UNIT/ML SUBCUT SCH (11:00)
[2018-03-24] MEDS ORDERED: INSULIN GLARGINE 100 UNIT/ML SUBCUT SCH ×2 (12:50→21:00)
[2018-03-24] MEDS: AMPICILLIN/SULBACTAM 3,000 MG in SODIUM CHLORIDE 0.9% 100 ML IV SCH (17:19)
[2018-03-24] MEDS: rOPINIRole 1 MG TABLET PO SCH (20:31)
[2018-03-25] MEDS: LEVOTHYROXINE 88 MCG TABLET PO SCH (06:04)
[2018-03-25 06:22] LABS: Basophils % 0.1 % (0.0-0.8); Eosinophils # 0.1 10*3/uL (0.0-0.87); Eosinophils % 0.5 % (0.00-10.9); Hematocrit 23.6 VOL% (35.7-47.0); Hemoglobin 7.9 GM/DL (12.0-16.0); Immature Granulocytes % 1.5 %; Lymphocytes # 1.7 10*3/uL (1.4-4.0); Lymphocytes % 12.7 % (21.3-54.2); Mean Corpuscular HGB Conc 33.5 GM/DL (32-36); Mean Corpuscular Hemoglobin 30 PG (27-34); Mean Corpuscular Volume 90.1 FL (87-102); Mean Platelet Volume 10.5 FL (9.6-12.0); Monocytes # 0.6 10*3/uL (0.11-0.8); Monocytes % 4.7 % (1.7-12.7); Neutrophils # 10.5 10*3/uL (1.4-7.4); Neutrophils % 80.5 % (38.7-73.9); Platelet Count 401 T/CUMM (130-400); Red Blood Count 2.62 MC/CUMM (3.8-5.5); Red Cell Distribution Width 13.5 % (9.3-17.3); White Blood Count 13.1 T/CUMM (4-12)
[2018-03-25 06:36] LABS: Calcium 8.4 MG/DL (8.5-10.1); Osmolality,Calculated 299.4 MOS/KG (273-304); Potassium 4.1 MMOL/L (3.5-5.1)
[2018-03-25] MEDS: ALBUTEROL/IPRATROPIUM 3 ML NEB RESP TX SCH ×4 (07:07→20:25)
[2018-03-25] MEDS: ENOXAPARIN 30 MG/0.3 ML SYRINGE SUBCUT SCH (09:02)
[2018-03-25] MEDS: INSULIN REGULAR 100 UNIT/ML SUBCUT SCH ×4 (09:03→21:26)
[2018-03-25] MEDS: ESCITALOPRAM 10 MG TABLET PO SCH (09:03)
[2018-03-25] MEDS: ASPIRIN EC 81 MG TABLET PO SCH (09:03)
[2018-03-25] MEDS: predniSONE 20 MG TABLET PO SCH (09:04)
[2018-03-25] MEDS: PANTOPRAZOLE 40 MG TABLET PO SCH (09:04)
[2018-03-25] MEDS: hydrALAZINE 25 MG TABLET PO SCH ×4 (09:04→21:25)
[2018-03-25] MEDS: amLODIPine 10 MG TABLET PO SCH (09:04)
[2018-03-25] MEDS: miSOPROStol 200 MCG TABLET PO SCH (10:03)
[2018-03-25] MEDS ORDERED: SODIUM CHLORIDE 0.9% 1,000 ML IV PRN ×2 (13:24→18:41)
[2018-03-25] MEDS ORDERED: FUROSEMIDE 40 MG/4 ML VIAL IV ONE (13:25)
[2018-03-25] MEDS: AMPICILLIN/SULBACTAM 3,000 MG in SODIUM CHLORIDE 0.9% 100 ML IV SCH (17:57)
[2018-03-25] MEDS: rOPINIRole 1 MG TABLET PO SCH (21:25)
[2018-03-25] MEDS: INSULIN GLARGINE 100 UNIT/ML SUBCUT SCH (21:26)
[2018-03-26] MEDS ORDERED: FUROSEMIDE 40 MG/4 ML VIAL IV ONE (00:15)
[2018-03-26 05:59] LABS: Basophils % 0.2 % (0.0-0.8); Eosinophils # 0.1 10*3/uL (0.0-0.87); Eosinophils % 0.9 % (0.00-10.9); Hematocrit 30.2 VOL% (35.7-47.0); Immature Granulocytes % 1.3 %; Immature Granulocytes Absolute 0.15 #; Lymphocytes # 1.4 10*3/uL (1.4-4.0); Lymphocytes % 12.4 % (21.3-54.2); Mean Corpuscular HGB Conc 33.1 GM/DL (32-36); Mean Corpuscular Hemoglobin 30 PG (27-34); Mean Corpuscular Volume 90.4 FL (87-102); Mean Platelet Volume 10.3 FL (9.6-12.0); Monocytes # 0.7 10*3/uL (0.11-0.8); Monocytes % 5.8 % (1.7-12.7); Neutrophils # 9.2 10*3/uL (1.4-7.4); Neutrophils % 79.4 % (38.7-73.9); Platelet Count 360 T/CUMM (130-400); Red Blood Count 3.34 MC/CUMM (3.8-5.5); Red Cell Distribution Width 14.9 % (9.3-17.3); White Blood Count 11.6 T/CUMM (4-12)
[2018-03-26 06:28] LABS: Calcium 8.4 MG/DL (8.5-10.1); Osmolality,Calculated 303.1 MOS/KG (273-304); Potassium 3.6 MMOL/L (3.5-5.1)
[2018-03-26] MEDS: LEVOTHYROXINE 88 MCG TABLET PO SCH (06:37)
[2018-03-26] MEDS: ALBUTEROL/IPRATROPIUM 3 ML NEB RESP TX SCH ×4 (07:28→19:24)
[2018-03-26] MEDS: hydrALAZINE 25 MG TABLET PO SCH ×4 (08:07→21:03)
[2018-03-26] MEDS: INSULIN GLARGINE 100 UNIT/ML SUBCUT SCH ×2 (08:07→21:04)
[2018-03-26] MEDS: amLODIPine 10 MG TABLET PO SCH (08:07)
[2018-03-26] MEDS: PANTOPRAZOLE 40 MG TABLET PO SCH (08:07)
[2018-03-26] MEDS: ESCITALOPRAM 10 MG TABLET PO SCH (08:07)
[2018-03-26] MEDS: ASPIRIN EC 81 MG TABLET PO SCH (08:07)
[2018-03-26] MEDS: ENOXAPARIN 30 MG/0.3 ML SYRINGE SUBCUT SCH (08:07)
[2018-03-26] MEDS: INSULIN REGULAR 100 UNIT/ML SUBCUT SCH ×4 (08:08→21:04)
[2018-03-26] MEDS: CARVEDILOL 3.125 MG TABLET PO SCH ×2 (14:28→17:30)
[2018-03-26] MEDS: AMPICILLIN/SULBACTAM 3,000 MG in SODIUM CHLORIDE 0.9% 100 ML IV SCH (17:30)
[2018-03-26] MEDS: rOPINIRole 1 MG TABLET PO SCH (21:03)
[2018-03-27] MEDS: ONDANSETRON 4 MG/2 ML VIAL IV PRN (02:00)
[2018-03-27] MEDS: LEVOTHYROXINE 88 MCG TABLET PO SCH (06:10)
[2018-03-27] MEDS: INSULIN REGULAR 100 UNIT/ML SUBCUT SCH ×4 (07:38→20:24)
[2018-03-27] MEDS: ALBUTEROL/IPRATROPIUM 3 ML NEB RESP TX SCH ×4 (08:25→19:32)
[2018-03-27] MEDS: ASPIRIN EC 81 MG TABLET PO SCH (09:28)
[2018-03-27] MEDS: PANTOPRAZOLE 40 MG TABLET PO SCH (09:28)
[2018-03-27] MEDS: hydrALAZINE 25 MG TABLET PO SCH ×4 (09:28→20:45)
[2018-03-27] MEDS: CARVEDILOL 3.125 MG TABLET PO SCH (09:28)
[2018-03-27] MEDS: INSULIN GLARGINE 100 UNIT/ML SUBCUT SCH ×2 (09:28→20:46)
[2018-03-27] MEDS: ESCITALOPRAM 10 MG TABLET PO SCH (09:28)
[2018-03-27] MEDS: ENOXAPARIN 30 MG/0.3 ML SYRINGE SUBCUT SCH (09:28)
[2018-03-27] MEDS: amLODIPine 10 MG TABLET PO SCH (09:28)
[2018-03-27] MEDS: CARVEDILOL 6.25 MG TABLET PO SCH (17:56)
[2018-03-27] MEDS: AMPICILLIN/SULBACTAM 3,000 MG in SODIUM CHLORIDE 0.9% 100 ML IV SCH (17:56)
[2018-03-27] MEDS: rOPINIRole 1 MG TABLET PO SCH (20:45)
[2018-03-27] MEDS: NIFEdipine 10 MG CAPSULE PO PRN (23:39)
[2018-03-28] MEDS: LEVOTHYROXINE 88 MCG TABLET PO SCH (06:06)
[2018-03-28 06:31] LABS: Calcium 8.4 MG/DL (8.5-10.1); Osmolality,Calculated 293.8 MOS/KG (273-304); Potassium 3.4 MMOL/L (3.5-5.1)
[2018-03-28] MEDS: ALBUTEROL/IPRATROPIUM 3 ML NEB RESP TX SCH ×4 (06:46→19:44)
[2018-03-28] MEDS: INSULIN REGULAR 100 UNIT/ML SUBCUT SCH ×4 (08:03→21:11)
[2018-03-28] MEDS: hydrALAZINE 25 MG TABLET PO SCH ×4 (08:58→21:10)
[2018-03-28] MEDS: CARVEDILOL 6.25 MG TABLET PO SCH ×2 (08:58→17:11)
[2018-03-28] MEDS: PANTOPRAZOLE 40 MG TABLET PO SCH (08:59)
[2018-03-28] MEDS: amLODIPine 10 MG TABLET PO SCH (08:59)
[2018-03-28] MEDS: ESCITALOPRAM 10 MG TABLET PO SCH (08:59)
[2018-03-28] MEDS: ASPIRIN EC 81 MG TABLET PO SCH (08:59)
[2018-03-28] MEDS: ENOXAPARIN 30 MG/0.3 ML SYRINGE SUBCUT SCH ×2 (08:59→10:35)
[2018-03-28] MEDS: INSULIN GLARGINE 100 UNIT/ML SUBCUT SCH ×3 (09:00→21:11)
[2018-03-28] MEDS: FERROUS SULFATE 325 MG TABLET PO SCH ×2 (09:30→21:10)
[2018-03-28] MEDS: LOSARTAN 25 MG TABLET PO SCH (10:39)
[2018-03-28] MEDS ORDERED: LIDOCAINE 1% 20 ML VIAL ONE ×2 (12:33→13:46)
[2018-03-28 15:14] LABS: Apearance,Urine CLEAR (Clear); Bilirubin,Urine Negative (Negative); Blood, Urine Small mg/dL (Negative); Glucose,Urine (UA) 150 mg/dL (Negative); Ketones,Urine Negative (Negative); Nitrite,Urine Negative (Negative); Protein,Urine 30 MG/DL; RBC,Urine 9 /HPF (0-4); Squamous Epithelial Cell,Urine Occasional /HPF (0-10); Urine Color Straw (Yellow); Urine Specific Gravity 1.005 (1.001-1.035); Urine Urobilinogen < 2.0 EU/DL (0.2-1.0); WBC,Urine 2 /HPF (0-6)
[2018-03-28] MEDS: AMPICILLIN/SULBACTAM 3,000 MG in SODIUM CHLORIDE 0.9% 100 ML IV SCH (17:16)
[2018-03-28] MEDS: rOPINIRole 1 MG TABLET PO SCH (21:10)
[2018-03-29] MEDS: LEVOTHYROXINE 88 MCG TABLET PO SCH (06:19)
[2018-03-29 06:30] LABS: Basophils # 0.1 10*3/uL (0.0-0.2); Basophils % 0.4 % (0.0-0.8); Eosinophils # 0.2 10*3/uL (0.0-0.87); Eosinophils % 1.6 % (0.00-10.9); Hematocrit 30.6 VOL% (35.7-47.0); Hemoglobin 9.9 GM/DL (12.0-16.0); Immature Granulocytes % 0.8 %; Immature Granulocytes Absolute 0.11 #; Lymphocytes # 1.3 10*3/uL (1.4-4.0); Mean Corpuscular HGB Conc 32.4 GM/DL (32-36); Mean Corpuscular Hemoglobin 30 PG (27-34); Mean Corpuscular Volume 91.3 FL (87-102); Mean Platelet Volume 10.5 FL (9.6-12.0); Monocytes % 7.3 % (1.7-12.7); Neutrophils # 10.6 10*3/uL (1.4-7.4); Neutrophils % 79.9 % (38.7-73.9); Platelet Count 348 T/CUMM (130-400); Red Blood Count 3.35 MC/CUMM (3.8-5.5); Red Cell Distribution Width 14.6 % (9.3-17.3); White Blood Count 13.3 T/CUMM (4-12)
[2018-03-29] MEDS: INSULIN REGULAR 100 UNIT/ML SUBCUT SCH ×4 (07:07→20:36)
[2018-03-29 07:09] LABS: Albumin 2.6 G/DL (3.4-5.0); Calcium 7.6 MG/DL (8.5-10.1); Osmolality,Calculated 295.7 MOS/KG (273-304); Potassium 3.3 MMOL/L (3.5-5.1)
[2018-03-29] MEDS: ALBUTEROL/IPRATROPIUM 3 ML NEB RESP TX SCH ×4 (07:19→19:45)
[2018-03-29] MEDS: CARVEDILOL 6.25 MG TABLET PO SCH ×2 (09:57→17:35)
[2018-03-29] MEDS: hydrALAZINE 25 MG TABLET PO SCH ×4 (09:58→20:34)
[2018-03-29] MEDS: ASPIRIN EC 81 MG TABLET PO SCH (09:58)
[2018-03-29] MEDS: LOSARTAN 25 MG TABLET PO SCH (09:58)
[2018-03-29] MEDS: ESCITALOPRAM 10 MG TABLET PO SCH (09:59)
[2018-03-29] MEDS: ENOXAPARIN 30 MG/0.3 ML SYRINGE SUBCUT SCH (09:59)
[2018-03-29] MEDS: amLODIPine 10 MG TABLET PO SCH (09:59)
[2018-03-29] MEDS: FERROUS SULFATE 325 MG TABLET PO SCH ×2 (09:59→20:34)
[2018-03-29] MEDS: PANTOPRAZOLE 40 MG TABLET PO SCH (10:00)
[2018-03-29] MEDS: INSULIN GLARGINE 100 UNIT/ML SUBCUT SCH ×2 (10:00→20:37)
[2018-03-29] MEDS: ACETAMINOPHEN 325 MG TABLET PO PRN (10:09)
[2018-03-29] MEDS: AMPICILLIN/SULBACTAM 3,000 MG in SODIUM CHLORIDE 0.9% 100 ML IV SCH (17:38)
[2018-03-29] MEDS: rOPINIRole 1 MG TABLET PO SCH (20:36)
[2018-03-30] MEDS: ALUMINUM/MAGNES/SIMETH MAX STR 30 ML UDCUP PO PRN (01:05)
[2018-03-30] MEDS: LEVOTHYROXINE 88 MCG TABLET PO SCH (06:00)
[2018-03-30 06:10] LABS: Basophils # 0.1 10*3/uL (0.0-0.2); Basophils % 0.5 % (0.0-0.8); Eosinophils # 0.3 10*3/uL (0.0-0.87); Eosinophils % 2.4 % (0.00-10.9); Hematocrit 30.4 VOL% (35.7-47.0); Hemoglobin 9.9 GM/DL (12.0-16.0); Immature Granulocytes % 0.6 %; Immature Granulocytes Absolute 0.07 #; Lymphocytes # 1.4 10*3/uL (1.4-4.0); Lymphocytes % 13.2 % (21.3-54.2); Mean Corpuscular HGB Conc 32.6 GM/DL (32-36); Mean Corpuscular Hemoglobin 30 PG (27-34); Mean Corpuscular Volume 91.6 FL (87-102); Mean Platelet Volume 10.3 FL (9.6-12.0); Monocytes # 0.8 10*3/uL (0.11-0.8); Neutrophils # 8.2 10*3/uL (1.4-7.4); Neutrophils % 76.3 % (38.7-73.9); Platelet Count 331 T/CUMM (130-400); Red Blood Count 3.32 MC/CUMM (3.8-5.5); Red Cell Distribution Width 14.3 % (9.3-17.3); White Blood Count 10.8 T/CUMM (4-12)
[2018-03-30 06:24] LABS: Albumin 2.6 G/DL (3.4-5.0); Calcium 7.6 MG/DL (8.5-10.1); Osmolality,Calculated 292.7 MOS/KG (273-304); Potassium 3.7 MMOL/L (3.5-5.1)
[2018-03-30 06:29] LABS: Albumin 2.5 G/DL (3.4-5.0); Bilirubin,Direct 0.1 MG/DL (0.0-0.20); Bilirubin,Indirect 0.4 MG/DL (0.0-1.0); Bilirubin,Total 0.5 MG/DL (0.2-1.0); Total Protein 6.4 G/DL (6.4-8.3)
[2018-03-30] MEDS: ALBUTEROL/IPRATROPIUM 3 ML NEB RESP TX SCH ×4 (07:19→19:18)
[2018-03-30] MEDS: INSULIN REGULAR 100 UNIT/ML SUBCUT SCH ×4 (07:55→20:46)
[2018-03-30] MEDS: CARVEDILOL 6.25 MG TABLET PO SCH ×2 (09:58→17:30)
[2018-03-30] MEDS: PANTOPRAZOLE 40 MG TABLET PO SCH (09:59)
[2018-03-30] MEDS: FERROUS SULFATE 325 MG TABLET PO SCH ×2 (09:59→20:45)
[2018-03-30] MEDS: LOSARTAN 25 MG TABLET PO SCH (09:59)
[2018-03-30] MEDS: amLODIPine 10 MG TABLET PO SCH (09:59)
[2018-03-30] MEDS: ENOXAPARIN 30 MG/0.3 ML SYRINGE SUBCUT SCH (10:00)
[2018-03-30] MEDS: ASPIRIN EC 81 MG TABLET PO SCH (10:00)
[2018-03-30] MEDS: INSULIN GLARGINE 100 UNIT/ML SUBCUT SCH ×2 (10:00→20:46)
[2018-03-30] MEDS: ESCITALOPRAM 10 MG TABLET PO SCH (10:03)
[2018-03-30] MEDS: hydrALAZINE 25 MG TABLET PO SCH (10:09)
[2018-03-30] MEDS ORDERED: LOSARTAN 50 MG TABLET PO SCH (11:30)
[2018-03-30] MEDS: hydrALAZINE 10 MG TABLET PO SCH ×2 (14:33→20:45)
[2018-03-30] MEDS: AMPICILLIN/SULBACTAM 3,000 MG in SODIUM CHLORIDE 0.9% 100 ML IV SCH (17:44)
[2018-03-30] MEDS: rOPINIRole 1 MG TABLET PO SCH (20:45)
[2018-03-31] MEDS: ACETAMINOPHEN 325 MG TABLET PO PRN (01:25)
[2018-03-31] MEDS: LEVOTHYROXINE 88 MCG TABLET PO SCH (06:00)
[2018-03-31 06:39] LABS: Basophils % 0.4 % (0.0-0.8); Eosinophils # 0.4 10*3/uL (0.0-0.87); Eosinophils % 3.3 % (0.00-10.9); Hemoglobin 10.7 GM/DL (12.0-16.0); Immature Granulocytes % 0.7 %; Immature Granulocytes Absolute 0.08 #; Lymphocytes # 2.1 10*3/uL (1.4-4.0); Lymphocytes % 18.9 % (21.3-54.2); Mean Corpuscular HGB Conc 33.4 GM/DL (32-36); Mean Corpuscular Hemoglobin 30 PG (27-34); Mean Corpuscular Volume 89.1 FL (87-102); Mean Platelet Volume 10.2 FL (9.6-12.0); Monocytes # 0.8 10*3/uL (0.11-0.8); Monocytes % 6.9 % (1.7-12.7); Neutrophils # 7.7 10*3/uL (1.4-7.4); Neutrophils % 69.8 % (38.7-73.9); Platelet Count 400 T/CUMM (130-400); Red Blood Count 3.59 MC/CUMM (3.8-5.5); Red Cell Distribution Width 14.1 % (9.3-17.3)
[2018-03-31 07:09] LABS: Albumin 2.9 G/DL (3.4-5.0); Calcium 8.3 MG/DL (8.5-10.1); Osmolality,Calculated 287.7 MOS/KG (273-304); Potassium 3.3 MMOL/L (3.5-5.1)
[2018-03-31] MEDS: ALBUTEROL/IPRATROPIUM 3 ML NEB RESP TX SCH ×4 (07:37→18:49)
[2018-03-31] MEDS: INSULIN REGULAR 100 UNIT/ML SUBCUT SCH ×4 (07:46→21:25)
[2018-03-31] MEDS: FERROUS SULFATE 325 MG TABLET PO SCH ×2 (09:13→21:25)
[2018-03-31] MEDS: ASPIRIN EC 81 MG TABLET PO SCH (09:13)
[2018-03-31] MEDS: PANTOPRAZOLE 40 MG TABLET PO SCH (09:14)
[2018-03-31] MEDS: ESCITALOPRAM 10 MG TABLET PO SCH (09:14)
[2018-03-31] MEDS: amLODIPine 10 MG TABLET PO SCH (09:14)
[2018-03-31] MEDS: CARVEDILOL 6.25 MG TABLET PO SCH ×2 (09:14→17:25)
[2018-03-31] MEDS: INSULIN GLARGINE 100 UNIT/ML SUBCUT SCH ×2 (09:15→21:26)
[2018-03-31] MEDS: ENOXAPARIN 30 MG/0.3 ML SYRINGE SUBCUT SCH (09:16)
[2018-03-31] MEDS: hydrALAZINE 10 MG TABLET PO SCH ×3 (09:18→21:25)
[2018-03-31] MEDS: LOSARTAN 50 MG TABLET PO SCH (12:19)
[2018-03-31] MEDS: AMPICILLIN/SULBACTAM 3,000 MG in SODIUM CHLORIDE 0.9% 100 ML IV SCH (18:55)
[2018-03-31] MEDS: rOPINIRole 1 MG TABLET PO SCH (21:25)
[2018-04-01] MEDS: LEVOTHYROXINE 88 MCG TABLET PO SCH (06:03)
[2018-04-01] MEDS: CARVEDILOL 6.25 MG TABLET PO SCH ×2 (07:47→16:21)
[2018-04-01] MEDS: INSULIN REGULAR 100 UNIT/ML SUBCUT SCH ×4 (07:55→22:10)
[2018-04-01] MEDS: ALBUTEROL/IPRATROPIUM 3 ML NEB RESP TX SCH ×4 (08:36→19:21)
[2018-04-01] MEDS: PANTOPRAZOLE 40 MG TABLET PO SCH (08:50)
[2018-04-01] MEDS: FERROUS SULFATE 325 MG TABLET PO SCH (08:50)
[2018-04-01] MEDS: ASPIRIN EC 81 MG TABLET PO SCH (08:51)
[2018-04-01] MEDS: ESCITALOPRAM 10 MG TABLET PO SCH (08:51)
[2018-04-01] MEDS: hydrALAZINE 10 MG TABLET PO SCH (08:51)
[2018-04-01] MEDS: amLODIPine 10 MG TABLET PO SCH (08:51)
[2018-04-01] MEDS: ENOXAPARIN 30 MG/0.3 ML SYRINGE SUBCUT SCH (08:52)
[2018-04-01] MEDS: INSULIN GLARGINE 100 UNIT/ML SUBCUT SCH ×2 (08:52→22:10)
[2018-04-01] MEDS: LOSARTAN 50 MG TABLET PO SCH (09:05)
[2018-04-01] MEDS: IRON SUCROSE 200 MG in SODIUM CHLORIDE 0.9% 100 ML IV SCH (11:58)
[2018-04-01] MEDS: AMPICILLIN INJ 1,000 MG in SODIUM CHLORIDE 0.9% 100 ML IV SCH ×2 (16:21→22:10)
[2018-04-01] MEDS: rOPINIRole 1 MG TABLET PO SCH (22:06)
[2018-04-02] MEDS: AMPICILLIN INJ 1,000 MG in SODIUM CHLORIDE 0.9% 100 ML IV SCH ×4 (03:45→21:40)
[2018-04-02 05:08] LABS: Basophils % 0.4 % (0.0-0.8); Eosinophils # 0.3 10*3/uL (0.0-0.87); Eosinophils % 4.4 % (0.00-10.9); Hematocrit 28.3 VOL% (35.7-47.0); Hemoglobin 9.4 GM/DL (12.0-16.0); Immature Granulocytes % 0.7 %; Immature Granulocytes Absolute 0.05 #; Lymphocytes # 0.9 10*3/uL (1.4-4.0); Lymphocytes % 11.6 % (21.3-54.2); Mean Corpuscular HGB Conc 33.2 GM/DL (32-36); Mean Corpuscular Hemoglobin 30 PG (27-34); Mean Corpuscular Volume 88.7 FL (87-102); Mean Platelet Volume 10.3 FL (9.6-12.0); Monocytes # 0.6 10*3/uL (0.11-0.8); Monocytes % 7.8 % (1.7-12.7); Neutrophils # 5.7 10*3/uL (1.4-7.4); Neutrophils % 75.1 % (38.7-73.9); Platelet Count 288 T/CUMM (130-400); Red Blood Count 3.19 MC/CUMM (3.8-5.5); Red Cell Distribution Width 13.9 % (9.3-17.3); White Blood Count 7.6 T/CUMM (4-12)
[2018-04-02 05:31] LABS: Albumin 2.7 G/DL (3.4-5.0); Calcium 7.9 MG/DL (8.5-10.1); Osmolality,Calculated 291.7 MOS/KG (273-304)
[2018-04-02] MEDS: LEVOTHYROXINE 88 MCG TABLET PO SCH (06:46)
[2018-04-02] MEDS: ALBUTEROL/IPRATROPIUM 3 ML NEB RESP TX SCH ×4 (07:45→19:50)
[2018-04-02] MEDS: INSULIN REGULAR 100 UNIT/ML SUBCUT SCH ×4 (07:55→21:40)
[2018-04-02] MEDS: ESCITALOPRAM 10 MG TABLET PO SCH (08:47)
[2018-04-02] MEDS: PANTOPRAZOLE 40 MG TABLET PO SCH (08:47)
[2018-04-02] MEDS: amLODIPine 10 MG TABLET PO SCH (08:48)
[2018-04-02] MEDS: CARVEDILOL 6.25 MG TABLET PO SCH ×2 (08:48→17:43)
[2018-04-02] MEDS: ASPIRIN EC 81 MG TABLET PO SCH (08:48)
[2018-04-02] MEDS: LOSARTAN 50 MG TABLET PO SCH (08:48)
[2018-04-02] MEDS: IRON SUCROSE 200 MG in SODIUM CHLORIDE 0.9% 100 ML IV SCH (08:49)
[2018-04-02] MEDS: INSULIN GLARGINE 100 UNIT/ML SUBCUT SCH ×2 (08:49→21:40)
[2018-04-02] MEDS: ACETAMINOPHEN 325 MG TABLET PO PRN (09:02)
[2018-04-02] MEDS: ENOXAPARIN 30 MG/0.3 ML SYRINGE SUBCUT SCH (10:09)
[2018-04-02] MEDS: rOPINIRole 1 MG TABLET PO SCH (21:37)
[2018-04-03] MEDS: AMPICILLIN INJ 1,000 MG in SODIUM CHLORIDE 0.9% 100 ML IV SCH ×4 (03:47→23:20)
[2018-04-03] MEDS: LEVOTHYROXINE 88 MCG TABLET PO SCH (06:22)
[2018-04-03 06:32] LABS: Basophils % 0.4 % (0.0-0.8); Eosinophils # 0.4 10*3/uL (0.0-0.87); Eosinophils % 6.2 % (0.00-10.9); Hematocrit 29.3 VOL% (35.7-47.0); Hemoglobin 9.7 GM/DL (12.0-16.0); Immature Granulocytes % 0.6 %; Immature Granulocytes Absolute 0.04 #; Lymphocytes # 1.4 10*3/uL (1.4-4.0); Lymphocytes % 19.7 % (21.3-54.2); Mean Corpuscular HGB Conc 33.1 GM/DL (32-36); Mean Corpuscular Hemoglobin 29 PG (27-34); Mean Corpuscular Volume 87.7 FL (87-102); Mean Platelet Volume 9.8 FL (9.6-12.0); Monocytes # 0.5 10*3/uL (0.11-0.8); Monocytes % 7.5 % (1.7-12.7); Neutrophils # 4.5 10*3/uL (1.4-7.4); Neutrophils % 65.6 % (38.7-73.9); Platelet Count 267 T/CUMM (130-400); Red Blood Count 3.34 MC/CUMM (3.8-5.5); Red Cell Distribution Width 13.8 % (9.3-17.3); White Blood Count 6.9 T/CUMM (4-12)
[2018-04-03 06:57] LABS: Albumin 2.7 G/DL (3.4-5.0); Calcium 7.7 MG/DL (8.5-10.1); Osmolality,Calculated 295.4 MOS/KG (273-304)
[2018-04-03] MEDS: ALBUTEROL/IPRATROPIUM 3 ML NEB RESP TX SCH ×4 (07:07→19:25)
[2018-04-03] MEDS: INSULIN REGULAR 100 UNIT/ML SUBCUT SCH ×4 (07:43→21:55)
[2018-04-03] MEDS: CARVEDILOL 6.25 MG TABLET PO SCH ×2 (08:12→16:18)
[2018-04-03] MEDS: PANTOPRAZOLE 40 MG TABLET PO SCH (08:12)
[2018-04-03] MEDS: LOSARTAN 50 MG TABLET PO SCH (08:12)
[2018-04-03] MEDS: ASPIRIN EC 81 MG TABLET PO SCH (08:12)
[2018-04-03] MEDS: amLODIPine 10 MG TABLET PO SCH (08:13)
[2018-04-03] MEDS: INSULIN GLARGINE 100 UNIT/ML SUBCUT SCH ×2 (08:13→21:55)
[2018-04-03] MEDS: ESCITALOPRAM 10 MG TABLET PO SCH (08:13)
[2018-04-03] MEDS: IRON SUCROSE 200 MG in SODIUM CHLORIDE 0.9% 100 ML IV SCH (08:14)
[2018-04-03] MEDS: ENOXAPARIN 30 MG/0.3 ML SYRINGE SUBCUT SCH (08:14)
[2018-04-03] MEDS: diphenhydrAMINE CAP 25 MG CAPSULE PO PRN ×2 (08:30→20:01)
[2018-04-03] MEDS: rOPINIRole 1 MG TABLET PO SCH (21:55)
[2018-04-04 04:22] LABS: Basophils # 0.1 10*3/uL (0.0-0.2); Basophils % 0.7 % (0.0-0.8); Eosinophils # 0.5 10*3/uL (0.0-0.87); Eosinophils % 6.3 % (0.00-10.9); Hematocrit 28.3 VOL% (35.7-47.0); Hemoglobin 9.5 GM/DL (12.0-16.0); Immature Granulocytes % 1.1 %; Immature Granulocytes Absolute 0.08 #; Lymphocytes # 1.5 10*3/uL (1.4-4.0); Lymphocytes % 20.8 % (21.3-54.2); Mean Corpuscular HGB Conc 33.6 GM/DL (32-36); Mean Corpuscular Hemoglobin 29 PG (27-34); Mean Corpuscular Volume 87.6 FL (87-102); Mean Platelet Volume 10.3 FL (9.6-12.0); Monocytes # 0.5 10*3/uL (0.11-0.8); Monocytes % 7.3 % (1.7-12.7); Neutrophils # 4.6 10*3/uL (1.4-7.4); Neutrophils % 63.8 % (38.7-73.9); Platelet Count 250 T/CUMM (130-400); Red Blood Count 3.23 MC/CUMM (3.8-5.5); Red Cell Distribution Width 13.7 % (9.3-17.3); White Blood Count 7.3 T/CUMM (4-12)
[2018-04-04 04:41] LABS: Albumin 2.7 G/DL (3.4-5.0); Calcium 7.6 MG/DL (8.5-10.1); Osmolality,Calculated 292.7 MOS/KG (273-304); Potassium 2.8 MMOL/L (3.5-5.1)
[2018-04-04] MEDS: AMPICILLIN INJ 1,000 MG in SODIUM CHLORIDE 0.9% 100 ML IV SCH ×2 (06:00→12:54)
[2018-04-04] MEDS: LEVOTHYROXINE 88 MCG TABLET PO SCH (06:00)
[2018-04-04] MEDS: ALBUTEROL/IPRATROPIUM 3 ML NEB RESP TX SCH ×4 (07:59→19:35)
[2018-04-04] MEDS: INSULIN REGULAR 100 UNIT/ML SUBCUT SCH ×4 (08:01→21:05)
[2018-04-04] MEDS: POTASSIUM CHLORIDE 20 MEQ TABLET PO SCH (10:03)
[2018-04-04] MEDS: ASPIRIN EC 81 MG TABLET PO SCH (10:03)
[2018-04-04] MEDS: PANTOPRAZOLE 40 MG TABLET PO SCH (10:03)
[2018-04-04] MEDS: amLODIPine 10 MG TABLET PO SCH (10:03)
[2018-04-04] MEDS: TELMISARTAN 40 MG TABLET PO SCH (10:03)
[2018-04-04] MEDS: ENOXAPARIN 30 MG/0.3 ML SYRINGE SUBCUT SCH (10:04)
[2018-04-04] MEDS: ESCITALOPRAM 10 MG TABLET PO SCH (10:04)
[2018-04-04] MEDS: INSULIN GLARGINE 100 UNIT/ML SUBCUT SCH ×2 (10:04→21:06)
[2018-04-04] MEDS: POTASSIUM CHLORIDE RIDER 10 MEQ in PREMIX 1 EACH IV PRN ×6 (10:08→23:04)
[2018-04-04] MEDS: LOSARTAN 50 MG TABLET PO SCH (10:44)
[2018-04-04] MEDS: CARVEDILOL 6.25 MG TABLET PO SCH (10:44)
[2018-04-04] MEDS: IRON SUCROSE 200 MG in SODIUM CHLORIDE 0.9% 100 ML IV SCH (11:51)
[2018-04-04 12:33] LABS: Apearance,Urine CLEAR (Clear); Bilirubin,Urine Negative (Negative); Blood, Urine Small mg/dL (Negative); Glucose,Urine (UA) 150 mg/dL (Negative); Ketones,Urine Negative (Negative); Nitrite,Urine Negative (Negative); Protein,Urine 30 MG/DL; RBC,Urine 2 /HPF (0-4); Squamous Epithelial Cell,Urine Occasional /HPF (0-10); Urine Color Colorless (Yellow); Urine Specific Gravity 1.004 (1.001-1.035); Urine Urobilinogen < 2.0 EU/DL (0.2-1.0); WBC,Urine 2 /HPF (0-6)
[2018-04-04] MEDS: POTASSIUM CHLORIDE INJ 40 MEQ in SODIUM CHLORIDE 0.45% 1,000 ML IV SCH (13:55)
[2018-04-04] MEDS: cefTRIAXone 2,000 MG in SYRINGE 1 EACH IV SCH (16:50)
[2018-04-04] MEDS: CARVEDILOL 12.5 MG TABLET PO SCH (17:04)
[2018-04-04] MEDS: diphenhydrAMINE CAP 25 MG CAPSULE PO PRN (18:10)
[2018-04-04] MEDS: rOPINIRole 1 MG TABLET PO SCH (21:05)
[2018-04-05] MEDS: POTASSIUM CHLORIDE RIDER 10 MEQ in PREMIX 1 EACH IV PRN ×4 (00:04→07:39)
[2018-04-05] MEDS: ACETAMINOPHEN 325 MG TABLET PO PRN (00:05)
[2018-04-05] MEDS: POTASSIUM CHLORIDE INJ 40 MEQ in SODIUM CHLORIDE 0.45% 1,000 ML IV SCH ×2 (02:07→20:23)
[2018-04-05] MEDS: LEVOTHYROXINE 88 MCG TABLET PO SCH (06:00)
[2018-04-05] MEDS: ALBUTEROL/IPRATROPIUM 3 ML NEB RESP TX SCH ×4 (07:40→19:40)
[2018-04-05] MEDS: INSULIN REGULAR 100 UNIT/ML SUBCUT SCH ×4 (07:49→21:39)
[2018-04-05] MEDS: IRON SUCROSE 200 MG in SODIUM CHLORIDE 0.9% 100 ML IV SCH (08:55)
[2018-04-05] MEDS: CARVEDILOL 12.5 MG TABLET PO SCH ×2 (08:56→17:11)
[2018-04-05] MEDS: ESCITALOPRAM 10 MG TABLET PO SCH (08:56)
[2018-04-05] MEDS: ASPIRIN EC 81 MG TABLET PO SCH (08:56)
[2018-04-05] MEDS: POTASSIUM CHLORIDE 20 MEQ TABLET PO SCH (08:56)
[2018-04-05] MEDS: TELMISARTAN 40 MG TABLET PO SCH (08:56)
[2018-04-05] MEDS: ENOXAPARIN 30 MG/0.3 ML SYRINGE SUBCUT SCH (08:57)
[2018-04-05] MEDS: PANTOPRAZOLE 40 MG TABLET PO SCH (08:57)
[2018-04-05] MEDS: amLODIPine 10 MG TABLET PO SCH (08:57)
[2018-04-05] MEDS: INSULIN GLARGINE 100 UNIT/ML SUBCUT SCH ×2 (08:57→21:40)
[2018-04-05] MEDS: cefTRIAXone 2,000 MG in SYRINGE 1 EACH IV SCH (17:11)
[2018-04-05] MEDS: rOPINIRole 1 MG TABLET PO SCH (21:39)
[2018-04-05] MEDS: diphenhydrAMINE CAP 25 MG CAPSULE PO PRN (21:39)
[2018-04-06] MEDS: diphenhydrAMINE CAP 25 MG CAPSULE PO PRN ×2 (04:22→09:44)
[2018-04-06 06:00] LABS: Basophils # 0.1 10*3/uL (0.0-0.2); Basophils % 0.8 % (0.0-0.8); Eosinophils # 0.7 10*3/uL (0.0-0.87); Eosinophils % 9.9 % (0.00-10.9); Hematocrit 30.2 VOL% (35.7-47.0); Hemoglobin 9.7 GM/DL (12.0-16.0); Immature Granulocytes % 1.1 %; Immature Granulocytes Absolute 0.07 #; Lymphocytes # 1.7 10*3/uL (1.4-4.0); Lymphocytes % 25.1 % (21.3-54.2); Mean Corpuscular HGB Conc 32.1 GM/DL (32-36); Mean Corpuscular Hemoglobin 29 PG (27-34); Mean Platelet Volume 10.2 FL (9.6-12.0); Monocytes # 0.5 10*3/uL (0.11-0.8); Monocytes % 8.1 % (1.7-12.7); Neutrophils # 3.6 10*3/uL (1.4-7.4); Platelet Count 232 T/CUMM (130-400); Red Blood Count 3.32 MC/CUMM (3.8-5.5); Red Cell Distribution Width 14.1 % (9.3-17.3); White Blood Count 6.6 T/CUMM (4-12)
[2018-04-06] MEDS: LEVOTHYROXINE 88 MCG TABLET PO SCH (06:16)
[2018-04-06 06:30] LABS: Albumin 2.8 G/DL (3.4-5.0); Calcium 8.2 MG/DL (8.5-10.1); Osmolality,Calculated 288.7 MOS/KG (273-304)
[2018-04-06 06:32] LABS: % Iron Saturation 29.9 % (18-50)
[2018-04-06] MEDS: ALBUTEROL/IPRATROPIUM 3 ML NEB RESP TX SCH ×4 (07:22→18:46)
[2018-04-06] MEDS: INSULIN REGULAR 100 UNIT/ML SUBCUT SCH ×4 (08:35→21:25)
[2018-04-06] MEDS: PANTOPRAZOLE 40 MG TABLET PO SCH (08:35)
[2018-04-06] MEDS: ESCITALOPRAM 10 MG TABLET PO SCH (08:35)
[2018-04-06] MEDS: amLODIPine 10 MG TABLET PO SCH (08:36)
[2018-04-06] MEDS: TELMISARTAN 40 MG TABLET PO SCH (08:36)
[2018-04-06] MEDS: POTASSIUM CHLORIDE 20 MEQ TABLET PO SCH (08:36)
[2018-04-06] MEDS: ENOXAPARIN 30 MG/0.3 ML SYRINGE SUBCUT SCH (08:36)
[2018-04-06] MEDS: CARVEDILOL 12.5 MG TABLET PO SCH ×2 (08:36→17:14)
[2018-04-06] MEDS: ASPIRIN EC 81 MG TABLET PO SCH (08:36)
[2018-04-06] MEDS: INSULIN GLARGINE 100 UNIT/ML SUBCUT SCH ×2 (08:37→21:24)
[2018-04-06] MEDS ORDERED: LEVOFLOXACIN 500 MG TABLET PO ONE (15:06)
[2018-04-06] MEDS: cefTRIAXone 2,000 MG in SYRINGE 1 EACH IV SCH (16:03)
[2018-04-06] MEDS: ACETAMINOPHEN 325 MG TABLET PO PRN (20:04)
[2018-04-06] MEDS: rOPINIRole 1 MG TABLET PO SCH (21:24)
[2018-04-07 05:45] LABS: Basophils # 0.1 10*3/uL (0.0-0.2); Basophils % 0.8 % (0.0-0.8); Eosinophils # 0.7 10*3/uL (0.0-0.87); Eosinophils % 9.9 % (0.00-10.9); Hematocrit 32.5 VOL% (35.7-47.0); Hemoglobin 10.8 GM/DL (12.0-16.0); Immature Granulocytes % 1.7 %; Immature Granulocytes Absolute 0.11 #; Lymphocytes # 1.8 10*3/uL (1.4-4.0); Mean Corpuscular HGB Conc 33.2 GM/DL (32-36); Mean Corpuscular Hemoglobin 29 PG (27-34); Mean Corpuscular Volume 87.8 FL (87-102); Mean Platelet Volume 9.8 FL (9.6-12.0); Monocytes # 0.5 10*3/uL (0.11-0.8); Monocytes % 7.8 % (1.7-12.7); Neutrophils # 3.5 10*3/uL (1.4-7.4); Neutrophils % 52.8 % (38.7-73.9); Platelet Count 264 T/CUMM (130-400); Red Cell Distribution Width 13.7 % (9.3-17.3); White Blood Count 6.7 T/CUMM (4-12)
[2018-04-07 06:17] LABS: Albumin 2.9 G/DL (3.4-5.0); Calcium 8.6 MG/DL (8.5-10.1); Osmolality,Calculated 288.8 MOS/KG (273-304); Potassium 4.3 MMOL/L (3.5-5.1)
[2018-04-07] MEDS: LEVOTHYROXINE 88 MCG TABLET PO SCH (06:24)
[2018-04-07] MEDS: INSULIN REGULAR 100 UNIT/ML SUBCUT SCH ×4 (08:01→21:10)
[2018-04-07] MEDS: ALBUTEROL/IPRATROPIUM 3 ML NEB RESP TX SCH ×4 (08:42→19:24)
[2018-04-07] MEDS: ENOXAPARIN 30 MG/0.3 ML SYRINGE SUBCUT SCH (10:09)
[2018-04-07] MEDS: TELMISARTAN 40 MG TABLET PO SCH (10:09)
[2018-04-07] MEDS: POTASSIUM CHLORIDE 20 MEQ TABLET PO SCH (10:09)
[2018-04-07] MEDS: LEVOFLOXACIN 250 MG TABLET PO SCH (10:09)
[2018-04-07] MEDS: PANTOPRAZOLE 40 MG TABLET PO SCH (10:09)
[2018-04-07] MEDS: INSULIN GLARGINE 100 UNIT/ML SUBCUT SCH ×2 (10:10→21:47)
[2018-04-07] MEDS: amLODIPine 10 MG TABLET PO SCH (10:12)
[2018-04-07] MEDS: ESCITALOPRAM 10 MG TABLET PO SCH (10:12)
[2018-04-07] MEDS: CARVEDILOL 12.5 MG TABLET PO SCH ×2 (10:12→17:06)
[2018-04-07] MEDS: ASPIRIN EC 81 MG TABLET PO SCH (10:13)
[2018-04-07] MEDS: diphenhydrAMINE CAP 25 MG CAPSULE PO PRN (21:09)
[2018-04-07] MEDS: rOPINIRole 1 MG TABLET PO SCH (21:10)
[2018-04-07] MEDS: ACETAMINOPHEN 325 MG TABLET PO PRN (23:54)
[2018-04-08 05:14] LABS: Basophils # 0.1 10*3/uL (0.0-0.2); Basophils % 0.7 % (0.0-0.8); Eosinophils # 0.7 10*3/uL (0.0-0.87); Eosinophils % 9.4 % (0.00-10.9); Hematocrit 32.7 VOL% (35.7-47.0); Hemoglobin 10.6 GM/DL (12.0-16.0); Immature Granulocytes % 1.7 %; Immature Granulocytes Absolute 0.12 #; Lymphocytes % 28.5 % (21.3-54.2); Mean Corpuscular HGB Conc 32.4 GM/DL (32-36); Mean Corpuscular Hemoglobin 29 PG (27-34); Mean Corpuscular Volume 89.1 FL (87-102); Mean Platelet Volume 9.8 FL (9.6-12.0); Monocytes # 0.6 10*3/uL (0.11-0.8); Neutrophils # 3.5 10*3/uL (1.4-7.4); Neutrophils % 50.7 % (38.7-73.9); Platelet Count 248 T/CUMM (130-400); Red Blood Count 3.67 MC/CUMM (3.8-5.5); Red Cell Distribution Width 13.8 % (9.3-17.3)
[2018-04-08 05:36] LABS: Hypochromasia 1+; Microcytosis 1+; Platelet Estimate Normal
[2018-04-08 05:40] LABS: Albumin 2.9 G/DL (3.4-5.0); Calcium 8.8 MG/DL (8.5-10.1); Osmolality,Calculated 288.3 MOS/KG (273-304); Potassium 4.5 MMOL/L (3.5-5.1)
[2018-04-08] MEDS: LEVOTHYROXINE 88 MCG TABLET PO SCH (06:21)
[2018-04-08] MEDS: ALBUTEROL/IPRATROPIUM 3 ML NEB RESP TX SCH ×3 (07:18→19:28)
[2018-04-08] MEDS: ESCITALOPRAM 10 MG TABLET PO SCH (10:18)
[2018-04-08] MEDS: ENOXAPARIN 30 MG/0.3 ML SYRINGE SUBCUT SCH (10:18)
[2018-04-08] MEDS: TELMISARTAN 40 MG TABLET PO SCH (10:18)
[2018-04-08] MEDS: ASPIRIN EC 81 MG TABLET PO SCH (10:18)
[2018-04-08] MEDS: CARVEDILOL 12.5 MG TABLET PO SCH ×2 (10:19→18:13)
[2018-04-08] MEDS: PANTOPRAZOLE 40 MG TABLET PO SCH (10:19)
[2018-04-08] MEDS: amLODIPine 10 MG TABLET PO SCH (10:19)
[2018-04-08] MEDS: LEVOFLOXACIN 250 MG TABLET PO SCH (10:19)
[2018-04-08] MEDS: POTASSIUM CHLORIDE 20 MEQ TABLET PO SCH (10:34)
[2018-04-08] MEDS: INSULIN GLARGINE 100 UNIT/ML SUBCUT SCH ×2 (10:34→21:33)
[2018-04-08] MEDS: INSULIN REGULAR 100 UNIT/ML SUBCUT SCH ×3 (16:48→21:32)
[2018-04-08] MEDS: rOPINIRole 1 MG TABLET PO SCH (21:32)
[2018-04-08] MEDS: diphenhydrAMINE CAP 25 MG CAPSULE PO PRN (21:36)
[2018-04-09] MEDS: LEVOTHYROXINE 88 MCG TABLET PO SCH (06:16)
[2018-04-09 06:53] LABS: Basophils # 0.1 10*3/uL (0.0-0.2); Basophils % 0.9 % (0.0-0.8); Eosinophils # 0.8 10*3/uL (0.0-0.87); Eosinophils % 10.2 % (0.00-10.9); Hematocrit 31.9 VOL% (35.7-47.0); Hemoglobin 10.5 GM/DL (12.0-16.0); Immature Granulocytes % 2.7 %; Lymphocytes # 2.2 10*3/uL (1.4-4.0); Lymphocytes % 29.1 % (21.3-54.2); Mean Corpuscular HGB Conc 32.9 GM/DL (32-36); Mean Corpuscular Hemoglobin 29 PG (27-34); Mean Corpuscular Volume 88.9 FL (87-102); Monocytes # 0.6 10*3/uL (0.11-0.8); Monocytes % 8.3 % (1.7-12.7); Neutrophils # 3.6 10*3/uL (1.4-7.4); Neutrophils % 48.8 % (38.7-73.9); Platelet Count 270 T/CUMM (130-400); Red Blood Count 3.59 MC/CUMM (3.8-5.5); Red Cell Distribution Width 13.8 % (9.3-17.3); White Blood Count 7.4 T/CUMM (4-12)
[2018-04-09 07:10] LABS: Calcium 8.8 MG/DL (8.5-10.1); Potassium 4.3 MMOL/L (3.5-5.1)
[2018-04-09] MEDS: ALBUTEROL/IPRATROPIUM 3 ML NEB RESP TX SCH ×5 (07:44→19:49)
[2018-04-09] MEDS: LEVOFLOXACIN 250 MG TABLET PO SCH (09:04)
[2018-04-09] MEDS: ASPIRIN EC 81 MG TABLET PO SCH (09:04)
[2018-04-09] MEDS: amLODIPine 10 MG TABLET PO SCH (09:04)
[2018-04-09] MEDS: PANTOPRAZOLE 40 MG TABLET PO SCH (09:04)
[2018-04-09] MEDS: POTASSIUM CHLORIDE 20 MEQ TABLET PO SCH (09:04)
[2018-04-09] MEDS: TELMISARTAN 40 MG TABLET PO SCH (09:05)
[2018-04-09] MEDS: ESCITALOPRAM 10 MG TABLET PO SCH (09:05)
[2018-04-09] MEDS: CARVEDILOL 12.5 MG TABLET PO SCH ×2 (09:05→23:39)
[2018-04-09] MEDS: ENOXAPARIN 30 MG/0.3 ML SYRINGE SUBCUT SCH (09:06)
[2018-04-09] MEDS: INSULIN REGULAR 100 UNIT/ML SUBCUT SCH ×4 (09:06→22:10)
[2018-04-09] MEDS: INSULIN GLARGINE 100 UNIT/ML SUBCUT SCH ×2 (09:47→20:53)
[2018-04-09] MEDS: rOPINIRole 1 MG TABLET PO SCH (20:52)
[2018-04-09] MEDS: ACETAMINOPHEN 325 MG TABLET PO PRN (23:38)
[2018-04-10 00:55] LABS: Apearance,Urine CLEAR (Clear); Bilirubin,Urine Negative (Negative); Blood, Urine Negative (Negative); Glucose,Urine (UA) 50 mg/dL (Negative); Ketones,Urine Negative (Negative); Nitrite,Urine Negative (Negative); Protein,Urine 30 MG/DL; RBC,Urine 1 /HPF (0-4); Renal Epithelial Cells,Urine Occasional /HPF (<1); Squamous Epithelial Cell,Urine Occasional /HPF (0-10); Urine Color Straw (Yellow); Urine Specific Gravity 1.005 (1.001-1.035); Urine Urobilinogen < 2.0 EU/DL (0.2-1.0); WBC,Urine 1 /HPF (0-6)
[2018-04-10 05:57] LABS: Basophils # 0.1 10*3/uL (0.0-0.2); Basophils % 0.8 % (0.0-0.8); Eosinophils # 0.7 10*3/uL (0.0-0.87); Eosinophils % 9.5 % (0.00-10.9); Hematocrit 31.8 VOL% (35.7-47.0); Hemoglobin 10.4 GM/DL (12.0-16.0); Immature Granulocytes % 3.9 %; Lymphocytes # 2.3 10*3/uL (1.4-4.0); Lymphocytes % 29.4 % (21.3-54.2); Mean Corpuscular HGB Conc 32.7 GM/DL (32-36); Mean Corpuscular Hemoglobin 29 PG (27-34); Mean Corpuscular Volume 87.8 FL (87-102); Monocytes # 0.6 10*3/uL (0.11-0.8); Monocytes % 7.5 % (1.7-12.7); Neutrophils # 3.7 10*3/uL (1.4-7.4); Neutrophils % 48.9 % (38.7-73.9); Platelet Count 292 T/CUMM (130-400); Red Blood Count 3.62 MC/CUMM (3.8-5.5); Red Cell Distribution Width 13.9 % (9.3-17.3); White Blood Count 7.7 T/CUMM (4-12)
[2018-04-10] MEDS: LEVOTHYROXINE 88 MCG TABLET PO SCH (06:15)
[2018-04-10 06:29] LABS: Calcium 8.7 MG/DL (8.5-10.1); Osmolality,Calculated 292.8 MOS/KG (273-304); Potassium 4.2 MMOL/L (3.5-5.1)
[2018-04-10] MEDS: ESCITALOPRAM 10 MG TABLET PO SCH (10:36)
[2018-04-10] MEDS: LEVOFLOXACIN 250 MG TABLET PO SCH (10:37)
[2018-04-10] MEDS: POTASSIUM CHLORIDE 20 MEQ TABLET PO SCH (10:37)
[2018-04-10] MEDS: amLODIPine 10 MG TABLET PO SCH (10:37)
[2018-04-10] MEDS: TELMISARTAN 40 MG TABLET PO SCH (10:38)
[2018-04-10] MEDS: ASPIRIN EC 81 MG TABLET PO SCH (10:38)
[2018-04-10] MEDS: PANTOPRAZOLE 40 MG TABLET PO SCH (10:38)
[2018-04-10] MEDS: CARVEDILOL 12.5 MG TABLET PO SCH ×2 (10:38→17:40)
[2018-04-10] MEDS: INSULIN GLARGINE 100 UNIT/ML SUBCUT SCH ×2 (10:39→20:37)
[2018-04-10] MEDS: INSULIN REGULAR 100 UNIT/ML SUBCUT SCH ×4 (10:40→20:37)
[2018-04-10] MEDS: ENOXAPARIN 30 MG/0.3 ML SYRINGE SUBCUT SCH (10:41)
[2018-04-10] MEDS: ALBUTEROL/IPRATROPIUM 3 ML NEB RESP TX SCH ×2 (11:14→13:49)
[2018-04-10] MEDS: rOPINIRole 1 MG TABLET PO SCH (20:37)
[2018-04-11 06:08] LABS: Basophils # 0.1 10*3/uL (0.0-0.2); Basophils % 0.9 % (0.0-0.8); Eosinophils # 0.7 10*3/uL (0.0-0.87); Eosinophils % 7.8 % (0.00-10.9); Hematocrit 31.9 VOL% (35.7-47.0); Hemoglobin 10.3 GM/DL (12.0-16.0); Immature Granulocytes % 3.9 %; Immature Granulocytes Absolute 0.35 #; Lymphocytes # 2.9 10*3/uL (1.4-4.0); Lymphocytes % 32.3 % (21.3-54.2); Mean Corpuscular HGB Conc 32.3 GM/DL (32-36); Mean Corpuscular Hemoglobin 29 PG (27-34); Mean Corpuscular Volume 89.4 FL (87-102); Monocytes # 0.7 10*3/uL (0.11-0.8); Monocytes % 8.1 % (1.7-12.7); Neutrophils # 4.2 10*3/uL (1.4-7.4); Platelet Count 311 T/CUMM (130-400); Red Blood Count 3.57 MC/CUMM (3.8-5.5); Red Cell Distribution Width 13.8 % (9.3-17.3); White Blood Count 8.9 T/CUMM (4-12)
[2018-04-11 06:21] LABS: Albumin 3.1 G/DL (3.4-5.0); Calcium 8.7 MG/DL (8.5-10.1); Osmolality,Calculated 293.1 MOS/KG (273-304); Potassium 4.2 MMOL/L (3.5-5.1)
[2018-04-11] MEDS: LEVOTHYROXINE 88 MCG TABLET PO SCH (06:28)
[2018-04-11] MEDS: INSULIN REGULAR 100 UNIT/ML SUBCUT SCH ×4 (08:35→20:32)
[2018-04-11] MEDS: INSULIN GLARGINE 100 UNIT/ML SUBCUT SCH ×2 (08:35→20:32)
[2018-04-11] MEDS: ASPIRIN EC 81 MG TABLET PO SCH (08:37)
[2018-04-11] MEDS: CARVEDILOL 12.5 MG TABLET PO SCH ×2 (08:37→17:29)
[2018-04-11] MEDS: POTASSIUM CHLORIDE 20 MEQ TABLET PO SCH (08:38)
[2018-04-11] MEDS: LEVOFLOXACIN 250 MG TABLET PO SCH (08:38)
[2018-04-11] MEDS: TELMISARTAN 40 MG TABLET PO SCH (08:39)
[2018-04-11] MEDS: amLODIPine 10 MG TABLET PO SCH (08:39)
[2018-04-11] MEDS: ENOXAPARIN 30 MG/0.3 ML SYRINGE SUBCUT SCH (08:39)
[2018-04-11] MEDS: PANTOPRAZOLE 40 MG TABLET PO SCH (08:40)
[2018-04-11] MEDS: ESCITALOPRAM 10 MG TABLET PO SCH (08:44)
[2018-04-11] MEDS: rOPINIRole 1 MG TABLET PO SCH (20:31)
[2018-04-11] MEDS: ACETAMINOPHEN 325 MG TABLET PO PRN (23:46)
[2018-04-12] MEDS: LEVOTHYROXINE 88 MCG TABLET PO SCH (06:00)
[2018-04-12] MEDS: INSULIN REGULAR 100 UNIT/ML SUBCUT SCH ×2 (07:48→12:44)
[2018-04-12] MEDS: INSULIN GLARGINE 100 UNIT/ML SUBCUT SCH (09:00)
[2018-04-12] MEDS: CARVEDILOL 12.5 MG TABLET PO SCH (10:05)
[2018-04-12] MEDS: ASPIRIN EC 81 MG TABLET PO SCH (10:05)
[2018-04-12] MEDS: POTASSIUM CHLORIDE 20 MEQ TABLET PO SCH (10:06)
[2018-04-12] MEDS: LEVOFLOXACIN 250 MG TABLET PO SCH (10:06)
[2018-04-12] MEDS: ENOXAPARIN 30 MG/0.3 ML SYRINGE SUBCUT SCH (10:06)
[2018-04-12] MEDS: ESCITALOPRAM 10 MG TABLET PO SCH (10:06)
[2018-04-12] MEDS: PANTOPRAZOLE 40 MG TABLET PO SCH (10:07)
[2018-04-12] MEDS: TELMISARTAN 40 MG TABLET PO SCH (10:07)
[2018-04-12] MEDS: amLODIPine 10 MG TABLET PO SCH (10:07)
[2018-04-12 12:13] VITALS: BP 123/66
== END 2018-04-12 15:57 | disposition home or self-care (01) | DRG 853 ==
LOC: SUATTDRO 19:07 → N.5E 19:07 → N.ICU 03-20 13:32 → N.3E 03-22 23:07
PROVIDERS: ADMIT Internal Medicine; ATTEND Surgery

== ENCOUNTER 2018-07-14 13:45 | Inpatient (IN) ==
[2018-07-14] MEDS ORDERED: PIPERACILLIN/TAZOBACTAM 3,375 MG in SODIUM CHLORIDE 0.9% 100 ML IV STA (14:25)
[2018-07-14] MEDS ORDERED: SODIUM CHLORIDE 0.9% 500 ML IV STA (14:27)
[2018-07-14 14:50] LABS: Basophils # 0.1 10*3/uL (0.0-0.2); Basophils % 0.4 % (0.0-0.8); Eosinophils # 0.1 10*3/uL (0.0-0.87); Eosinophils % 0.8 % (0.00-10.9); Hematocrit 38.2 VOL% (35.7-47.0); Hemoglobin 12.4 GM/DL (12.0-16.0); Immature Granulocytes % 0.6 %; Lymphocytes # 2.7 10*3/uL (1.4-4.0); Lymphocytes % 16.8 % (21.3-54.2); Mean Corpuscular HGB Conc 32.5 GM/DL (32-36); Mean Corpuscular Hemoglobin 29 PG (27-34); Mean Corpuscular Volume 89.9 FL (87-102); Mean Platelet Volume 10.2 FL (9.6-12.0); Monocytes # 1.4 10*3/uL (0.11-0.8); Monocytes % 8.9 % (1.7-12.7); Neutrophils # 11.5 10*3/uL (1.4-7.4); Neutrophils % 72.5 % (38.7-73.9); Platelet Count 357 T/CUMM (130-400); Red Blood Count 4.25 MC/CUMM (3.8-5.5); Red Cell Distribution Width 12.7 % (9.3-17.3); White Blood Count 15.8 T/CUMM (4-12)
[2018-07-14 15:17] LABS: Albumin 3.1 G/DL (3.4-5.0); Bilirubin,Total 0.6 MG/DL (0.2-1.0); Calcium 9.2 MG/DL (8.5-10.1); Osmolality,Calculated 277.1 MOS/KG (273-304); Potassium 4.2 MMOL/L (3.5-5.1); Total Protein 8.5 G/DL (6.4-8.3)
[2018-07-14] MEDS ORDERED: MORPHINE 4 MG/1 ML VIAL IV PRN (17:23)
[2018-07-14] MEDS ORDERED: DEXTROSE 50% 25 GM/50 ML VIAL IV PRN (17:23)
[2018-07-14] MEDS ORDERED: ACETAMINOPHEN 325 MG TABLET PO PRN (17:23)
[2018-07-14] MEDS ORDERED: GLUCAGON 1 MG VIAL IM PRN (17:23)
[2018-07-14] MEDS ORDERED: ONDANSETRON 4 MG/2 ML VIAL IV PRN (17:23)
[2018-07-14] MEDS: LACTATED RINGERS 1,000 ML IV SCH (18:11)
[2018-07-14] MEDS: INSULIN REGULAR 100 UNIT/ML SUBCUT SCH ×2 (18:28→21:40)
[2018-07-14 20:11] LABS: Apearance,Urine CLEAR (Clear); Bacteria,Urine Occasional /HPF (Few); Bilirubin,Urine Negative (Negative); Blood, Urine Small mg/dL (Negative); Glucose,Urine (UA) Negative (Negative); Ketones,Urine Negative (Negative); Nitrite,Urine Negative (Negative); Protein,Urine Negative; RBC,Urine 5 /HPF (0-4); Squamous Epithelial Cell,Urine Occasional /HPF (0-10); Urine Color Straw (Yellow); Urine Specific Gravity 1.009 (1.001-1.035); Urine Urobilinogen < 2.0 EU/DL (0.2-1.0); WBC,Urine 10 /HPF (0-6)
[2018-07-15] MEDS: PIPERACILLIN/TAZOBACTAM 3,375 MG in SODIUM CHLORIDE 0.9% 100 ML IV SCH ×2 (00:54→09:05)
[2018-07-15] MEDS: LACTATED RINGERS 1,000 ML IV SCH ×4 (00:54→19:25)
[2018-07-15] MEDS ORDERED: FUROSEMIDE 20 MG TABLET PO PRN (06:07)
[2018-07-15] MEDS ORDERED: POTASSIUM CHLORIDE 10 MEQ TABLET PO PRN (06:07)
[2018-07-15 06:21] LABS: Calcium 8.5 MG/DL (8.5-10.1); Osmolality,Calculated 277.5 MOS/KG (273-304)
[2018-07-15 06:31] LABS: Basophils # 0.1 10*3/uL (0.0-0.2); Basophils % 0.4 % (0.0-0.8); Eosinophils # 0.1 10*3/uL (0.0-0.87); Eosinophils % 0.8 % (0.00-10.9); Hematocrit 32.2 VOL% (35.7-47.0); Hemoglobin 10.5 GM/DL (12.0-16.0); Immature Granulocytes % 0.6 %; Immature Granulocytes Absolute 0.09 #; Lymphocytes # 3.1 10*3/uL (1.4-4.0); Lymphocytes % 20.2 % (21.3-54.2); Mean Corpuscular HGB Conc 32.6 GM/DL (32-36); Mean Corpuscular Hemoglobin 30 PG (27-34); Mean Corpuscular Volume 90.4 FL (87-102); Mean Platelet Volume 10.5 FL (9.6-12.0); Monocytes # 1.6 10*3/uL (0.11-0.8); Monocytes % 10.2 % (1.7-12.7); Neutrophils # 10.3 10*3/uL (1.4-7.4); Neutrophils % 67.8 % (38.7-73.9); Platelet Count 323 T/CUMM (130-400); Red Blood Count 3.56 MC/CUMM (3.8-5.5); Red Cell Distribution Width 12.6 % (9.3-17.3); White Blood Count 15.2 T/CUMM (4-12)
[2018-07-15] MEDS: LEVOTHYROXINE 100 MCG TABLET PO SCH (06:43)
[2018-07-15] MEDS: ENOXAPARIN 40 MG/0.4 ML SYRINGE SUBCUT SCH (09:01)
[2018-07-15] MEDS: PANTOPRAZOLE 40 MG TABLET PO SCH (09:02)
[2018-07-15] MEDS: INSULIN REGULAR 100 UNIT/ML SUBCUT SCH ×4 (09:02→21:02)
[2018-07-15] MEDS: TELMISARTAN 40 MG TABLET PO SCH (09:02)
[2018-07-15] MEDS: CARVEDILOL 12.5 MG TABLET PO SCH ×2 (09:02→16:57)
[2018-07-15] MEDS: ESCITALOPRAM 10 MG TABLET PO SCH (09:02)
[2018-07-15] MEDS ORDERED: LIDOCAINE 1% 20 ML VIAL ONE (10:37)
[2018-07-15] MEDS ORDERED: MIDAZOLAM 2 MG/2 ML VIAL ONE (11:13)
[2018-07-15] MEDS ORDERED: PROPOFOL 200 MG/20 ML VIAL IV ONE (11:13)
[2018-07-15] MEDS ORDERED: fentaNYL 100 MCG/2 ML VIAL ONE (11:14)
[2018-07-15] MEDS: CEFTAROLINE 600 MG in SODIUM CHLORIDE 0.9% 100 ML IV SCH (13:28)
[2018-07-15] MEDS ORDERED: Liraglutide [Victoza 2-Pak] 1.2 MG SUBCUT SCH (21:00)
[2018-07-15] MEDS: GABAPENTIN 100 MG CAPSULE PO SCH (21:02)
[2018-07-15] MEDS: rOPINIRole 0.25 MG TABLET PO SCH (21:02)
[2018-07-15] MEDS: ATORVASTATIN 20 MG TABLET PO SCH (21:02)
[2018-07-15] MEDS: PREGABALIN 100 MG CAPSULE PO SCH (21:02)
[2018-07-16] MEDS: CEFTAROLINE 600 MG in SODIUM CHLORIDE 0.9% 100 ML IV SCH ×2 (00:58→11:30)
[2018-07-16] MEDS: LACTATED RINGERS 1,000 ML IV SCH ×2 (04:31→11:44)
[2018-07-16] MEDS: LEVOTHYROXINE 100 MCG TABLET PO SCH (05:53)
[2018-07-16 06:03] LABS: Basophils # 0.1 10*3/uL (0.0-0.2); Basophils % 0.4 % (0.0-0.8); Eosinophils # 0.2 10*3/uL (0.0-0.87); Eosinophils % 1.7 % (0.00-10.9); Hemoglobin 10.3 GM/DL (12.0-16.0); Immature Granulocytes % 0.5 %; Immature Granulocytes Absolute 0.06 #; Lymphocytes # 2.8 10*3/uL (1.4-4.0); Lymphocytes % 24.1 % (21.3-54.2); Mean Corpuscular HGB Conc 31.2 GM/DL (32-36); Mean Corpuscular Hemoglobin 29 PG (27-34); Mean Corpuscular Volume 91.9 FL (87-102); Mean Platelet Volume 10.5 FL (9.6-12.0); Monocytes # 1.1 10*3/uL (0.11-0.8); Monocytes % 9.6 % (1.7-12.7); Neutrophils # 7.3 10*3/uL (1.4-7.4); Neutrophils % 63.7 % (38.7-73.9); Platelet Count 335 T/CUMM (130-400); Red Blood Count 3.59 MC/CUMM (3.8-5.5); Red Cell Distribution Width 12.5 % (9.3-17.3); White Blood Count 11.5 T/CUMM (4-12)
[2018-07-16 06:18] LABS: Calcium 8.7 MG/DL (8.5-10.1); Osmolality,Calculated 285.1 MOS/KG (273-304); Potassium 3.8 MMOL/L (3.5-5.1)
[2018-07-16] MEDS: INSULIN REGULAR 100 UNIT/ML SUBCUT SCH ×4 (09:18→20:31)
[2018-07-16] MEDS: ENOXAPARIN 40 MG/0.4 ML SYRINGE SUBCUT SCH (09:18)
[2018-07-16] MEDS: TELMISARTAN 40 MG TABLET PO SCH (09:18)
[2018-07-16] MEDS: ESCITALOPRAM 10 MG TABLET PO SCH (09:19)
[2018-07-16] MEDS: CARVEDILOL 12.5 MG TABLET PO SCH ×2 (09:19→16:57)
[2018-07-16] MEDS: PANTOPRAZOLE 40 MG TABLET PO SCH (09:20)
[2018-07-16] MEDS: ATORVASTATIN 20 MG TABLET PO SCH (20:30)
[2018-07-16] MEDS: rOPINIRole 0.25 MG TABLET PO SCH (20:30)
[2018-07-16] MEDS: PREGABALIN 100 MG CAPSULE PO SCH (20:30)
[2018-07-16] MEDS: GABAPENTIN 100 MG CAPSULE PO SCH (20:30)
[2018-07-17] MEDS: CEFTAROLINE 600 MG in SODIUM CHLORIDE 0.9% 100 ML IV SCH ×2 (00:35→12:17)
[2018-07-17] MEDS: LEVOTHYROXINE 100 MCG TABLET PO SCH (05:56)
[2018-07-17 06:44] LABS: Basophils # 0.1 10*3/uL (0.0-0.2); Basophils % 0.5 % (0.0-0.8); Eosinophils # 0.2 10*3/uL (0.0-0.87); Eosinophils % 2.1 % (0.00-10.9); Hematocrit 30.6 VOL% (35.7-47.0); Immature Granulocytes % 0.3 %; Immature Granulocytes Absolute 0.03 #; Lymphocytes # 2.6 10*3/uL (1.4-4.0); Lymphocytes % 26.7 % (21.3-54.2); Mean Corpuscular HGB Conc 32.7 GM/DL (32-36); Mean Corpuscular Hemoglobin 30 PG (27-34); Mean Corpuscular Volume 90.3 FL (87-102); Mean Platelet Volume 10.1 FL (9.6-12.0); Monocytes # 0.9 10*3/uL (0.11-0.8); Monocytes % 8.9 % (1.7-12.7); Neutrophils # 5.9 10*3/uL (1.4-7.4); Neutrophils % 61.5 % (38.7-73.9); Platelet Count 363 T/CUMM (130-400); Red Blood Count 3.39 MC/CUMM (3.8-5.5); Red Cell Distribution Width 12.5 % (9.3-17.3); White Blood Count 9.6 T/CUMM (4-12)
[2018-07-17 07:11] LABS: Calcium 8.7 MG/DL (8.5-10.1); Osmolality,Calculated 285.1 MOS/KG (273-304); Potassium 3.9 MMOL/L (3.5-5.1)
[2018-07-17] MEDS: INSULIN REGULAR 100 UNIT/ML SUBCUT SCH ×4 (09:55→20:15)
[2018-07-17] MEDS: PANTOPRAZOLE 40 MG TABLET PO SCH (09:56)
[2018-07-17] MEDS: CARVEDILOL 12.5 MG TABLET PO SCH ×2 (09:56→16:34)
[2018-07-17] MEDS: ESCITALOPRAM 10 MG TABLET PO SCH (09:56)
[2018-07-17] MEDS: TELMISARTAN 40 MG TABLET PO SCH (09:56)
[2018-07-17] MEDS: ENOXAPARIN 40 MG/0.4 ML SYRINGE SUBCUT SCH (09:57)
[2018-07-17] MEDS: PREGABALIN 100 MG CAPSULE PO SCH (20:15)
[2018-07-17] MEDS: GABAPENTIN 100 MG CAPSULE PO SCH (20:15)
[2018-07-17] MEDS: ATORVASTATIN 20 MG TABLET PO SCH (20:15)
[2018-07-17] MEDS: rOPINIRole 0.25 MG TABLET PO SCH (20:15)
[2018-07-18] MEDS: CEFTAROLINE 600 MG in SODIUM CHLORIDE 0.9% 100 ML IV SCH ×2 (00:38→12:33)
[2018-07-18] MEDS: LEVOTHYROXINE 100 MCG TABLET PO SCH (06:08)
[2018-07-18] MEDS: TELMISARTAN 40 MG TABLET PO SCH (09:08)
[2018-07-18] MEDS: PANTOPRAZOLE 40 MG TABLET PO SCH (09:08)
[2018-07-18] MEDS: ESCITALOPRAM 10 MG TABLET PO SCH (09:08)
[2018-07-18] MEDS: CARVEDILOL 12.5 MG TABLET PO SCH (09:08)
[2018-07-18] MEDS: ENOXAPARIN 40 MG/0.4 ML SYRINGE SUBCUT SCH (09:08)
[2018-07-18] MEDS: INSULIN REGULAR 100 UNIT/ML SUBCUT SCH ×2 (09:08→12:33)
[2018-07-18 11:25] VITALS: BP 114/86
== END 2018-07-18 13:00 | disposition home health service (06) | DRG 41 ==
LOC: N.ED 13:45 → N.3E 15:28
PROVIDERS: ADMIT Surgery; ATTEND Surgery